=== PATIENT | female | born 1940 | race Caucasian/White ===

== ENCOUNTER 2017-11-24 10:54 | Day surgery (SDC) | payer MEDICARE, BC ==
[2017-11-24] VITALS (19 sets, daily range): BP systolic 117–174; BP diastolic 50–92
[~2017-11-24] VITALS: Ht 167.6 cm; Wt 50.0 kg
[~2017-11-24 10:54] MED LIST: CARV3.12 PO; FURO80TA87 PO; LEVO50TA8 PO; MULT-342 PO; NIFE60TA69 PO; SEVE800T8 PO; SIMV80TA2 PO; [UNRECOGNIZED DRUG - OTHER] PO
[2017-11-24] MEDS ORDERED: normal saline 1000ml 1,000 ML IV SCH (11:10)
[2017-11-24 12:14] LABS: BASOPHILS % (AUTO) 0.4 % (0-1); EOSINOPHILS # (AUTO) 0.1 X10'3 (0-0.9); EOSINOPHILS % (AUTO) 1.4 % (0-6); HEMATOCRIT 30.5 % (35.0-45.0); HEMOGLOBIN 10.5 g/dl (12.0-16.0); LYMPHOCYTES # (AUTO) 1.4 X10'3 (1.1-4.8); LYMPHOCYTES % (AUTO) 13.2 % (21-51); MEAN CORPUSCULAR HEMOGLOBIN 31.9 PG (27.0-31.0); MEAN CORPUSCULAR HGB CONC 34.5 % (33.0-36.5); MEAN CORPUSCULAR VOLUME 92.3 FL (78-98); MEAN PLATELET VOLUME 7.4 FL (7.4-10.4); MONOCYTES # (AUTO) 0.8 X10'3 (0-0.9); MONOCYTES % (AUTO) 7.4 % (2-12); NEUTROPHILS # (AUTO) 8.2 X10'3 (1.8-7.7); NEUTROPHILS % (AUTO) 77.6 % (42-75); PLATELET COUNT 261 X10'3 (140-440); WHITE BLOOD COUNT 10.6 X10'3 (4.5-11.0)
[2017-11-24] MEDS ORDERED: fentaNYL/PF 50MCG/1 ML 2ML syringe IV PRN (12:30)
[2017-11-24] MEDS ORDERED: midazolam 2 mg/2 ml injection IV PRN (12:30)
[2017-11-24] MEDS ORDERED: LIDOcaine 1%/PF (10mg/ml) 5ml vial SQ ONE (12:30)
[2017-11-24] MEDS ORDERED: heparin 1,000unit/ml 10ml vial 0 ML ONE (12:31)
[2017-11-24] MEDS ORDERED: midazolam 2 mg/2 ml injection ONE (12:32)
[2017-11-24] MEDS ORDERED: fentaNYL/PF 50MCG/1 ML 2ML syringe ONE (12:32)
[2017-11-24] MEDS ORDERED: heparin 1,000 UNITS/NS 500ml 500 ML ONE (12:32)
[2017-11-24] MEDS ORDERED: iohexol 300mg/ml 100ml inj. ONE (12:33)
[2017-11-24] MEDS ORDERED: LIDOcaine 1%/PF (10mg/ml) 5ml vial ONE (12:33)
[2017-11-24] MEDS ORDERED: CLOP75TA15 PO (12:38)
[2017-11-24] MEDS ORDERED: MIDO5TAB PO (12:38)
[2017-11-24] MEDS ORDERED: clopidogrel 300mg tablet PO ONE (13:55)
== END 2017-11-24 16:00 | disposition home or self-care (01) ==
LOC: SSTAY O 10:54
PROVIDERS: ATTEND Radiology Diagnostic Radiology
DX: T82.858A Stenosis of other vascular prosthetic devices, implants and grafts, initial encounter (principal); I12.0 Hypertensive chronic kidney disease with stage 5 chronic kidney disease or end stage renal disease; N18.6 End stage renal disease; E78.5 Hyperlipidemia, unspecified; I25.10 Atherosclerotic heart disease of native coronary artery without angina pectoris; G89.29 Other chronic pain; E03.9 Hypothyroidism, unspecified; B19.10 Unspecified viral hepatitis B without hepatic coma; Z95.1 Presence of aortocoronary bypass graft; Z99.2 Dependence on renal dialysis; Z98.890 Other specified postprocedural states; Z79.899 Other long term (current) drug therapy; Z90.89 Acquired absence of other organs; Z98.42 Cataract extraction status, left eye; Z98.41 Cataract extraction status, right eye; Z90.710 Acquired absence of both cervix and uterus; Y83.8 Other surgical procedures as the cause of abnormal reaction of the patient, or of later complication, without mention of misadventure at the time of the procedure; Y92.89 Other specified places as the place of occurrence of the external cause
CPT/HCPCS: 36415; 36901; 36908; 85025; 99152; 99153; C1725; C1769; C1887; C1894; J1644; J2001; J2250; J3010; J7030; Q9967; 36903; A4620

== ENCOUNTER 2018-04-12 11:25 | Inpatient (IN) | payer MEDICARE, BC ==
[~2018-04-12] VITALS: Ht 167.6 cm; Wt 58.4 kg
[~2018-04-12 11:25] MED LIST changes: +CLOP75TA15 PO; +MIDO5TAB PO
[2018-04-12 12:24] LABS: BASOPHILS % (AUTO) 0.5 % (0-1); EOSINOPHILS # (AUTO) 0.6 X10'3 (0-0.9); EOSINOPHILS % (AUTO) 6.6 % (0-6); HEMATOCRIT 33.9 % (35.0-45.0); HEMOGLOBIN 11.4 g/dl (12.0-16.0); LYMPHOCYTES # (AUTO) 1.2 X10'3 (1.1-4.8); LYMPHOCYTES % (AUTO) 12.2 % (21-51); MEAN CORPUSCULAR HEMOGLOBIN 30.1 PG (27.0-31.0); MEAN CORPUSCULAR HGB CONC 33.6 % (33.0-36.5); MEAN CORPUSCULAR VOLUME 89.4 FL (78-98); MEAN PLATELET VOLUME 7.9 FL (7.4-10.4); MONOCYTES # (AUTO) 0.8 X10'3 (0-0.9); MONOCYTES % (AUTO) 8.5 % (2-12); NEUTROPHILS # (AUTO) 6.9 X10'3 (1.8-7.7); NEUTROPHILS % (AUTO) 72.2 % (42-75); PLATELET COUNT 262 X10'3 (140-440); RED BLOOD COUNT 3.79 X10'6 (4.20-5.60); RED CELL DISTRIBUTION WIDTH 17.8 % (11.5-14.5); WHITE BLOOD COUNT 9.6 X10'3 (4.5-11.0)
[2018-04-12 12:34] LABS: PARTIAL THROMBOPLASTIN TIME 27 SECONDS (22-32); PROTHROMBIN TIME 10.7 SECONDS (9.0-12.0)
[2018-04-12 12:40] LABS: ALANINE AMINOTRANSFERASE 16 U/L (12-78); ALBUMIN 3.3 G/DL (3.4-5.0); ALBUMIN/GLOBULIN RATIO 0.8 (1.1-1.5); ALKALINE PHOSPHATASE 94 IU/L (46-116); ANION GAP 18 (8-16); ASPARTATE AMINO TRANSFERASE 15 U/L (10-37); BILIRUBIN,TOTAL 0.5 MG/DL (0.1-1.0); BLOOD UREA NITROGEN 141 MG/DL (7-18); BUN/CREATININE RATIO 17.9 (6.6-38.0); CALCIUM 8.9 MG/DL (8.5-10.1); CHLORIDE 97 MMOL/L (99-107); CREATININE 7.86 MG/DL (0.40-0.90); GLUCOSE 118 MG/DL (70-104); POTASSIUM 5.8 MMOL/L (3.5-5.1); SODIUM 140 MMOL/L (135-145); TOTAL CARBON DIOXIDE 24.7 MMOL/L (24-32); TOTAL PROTEIN 7.4 G/DL (6.4-8.2); eGFR 5 ML/MIN
[2018-04-12] MEDS ORDERED: dextrose 50%-water 50ml dispensing syringe IV ONE (12:55)
[2018-04-12] MEDS ORDERED: sodium polystyrene sulfonate 15gm/60ml oral suspension PO ONE (12:55)
[2018-04-12] MEDS ORDERED: calcium chloride 100 MG/1 ML inj IV ONE (12:55)
[2018-04-12] MEDS ORDERED: insulin regular, human 10 units/0.1 ml syringe IV ONE (12:55)
[2018-04-12] MEDS ORDERED: diphenhydrAMINE 25mg capsule PO PRN (15:20)
[2018-04-12] MEDS ORDERED: acetaminophen 650mg rectal suppository RC PRN (15:20)
[2018-04-12] MEDS ORDERED: furosemide 10 MG/1 ML 10ml inj IV ONE (15:20)
[2018-04-12] MEDS ORDERED: ipratropium/albuterol 3ml nebule NEB PRN (15:20)
[2018-04-12] MEDS ORDERED: ondansetron/PF 4mg/2ml inj IV PRN (15:20)
[2018-04-12] MEDS ORDERED: bisacodyl 10mg suppository rectal RC PRN (15:20)
[2018-04-12] MEDS ORDERED: acetaminophen 325mg tablet PO PRN ×2 (15:20)
[2018-04-12] MEDS ORDERED: prednisone 10mg tablet PO ONE (15:20)
[2018-04-12] MEDS: sevelamer carbonate 800mg tablet PO SCH (18:00)
[2018-04-12 19:00] VITALS: BP 172/52
[2018-04-12] MEDS: docusate sod 100mg capsule PO SCH (20:00)
[2018-04-12] MEDS: atorvastatin 20mg tablet PO SCH (20:29)
[2018-04-12] MEDS: carVEDilol 3.125mg tablet PO SCH (20:37)
[2018-04-12] MEDS: NIFEdipine XL 30mg tablet PO SCH (20:39)
[2018-04-12] MEDS: multivitamins, therapeutics tablet PO SCH (20:40)
[2018-04-12] MEDS ORDERED: FUROSEMIDE PO SCH (21:00)
[2018-04-12] MEDS ORDERED: [UNRECOGNIZED DRUG - OTHER] PO SCH (21:00)
[2018-04-12 23:00] VITALS: BP 152/52
[2018-04-13] VITALS (22 sets, daily range): BP systolic 111–182; BP diastolic 51–98
[2018-04-13] MEDS ORDERED: heparin 1,000unit/ml 10ml vial 10 ML IV ONE (07:13)
[2018-04-13] MEDS ORDERED: heparin 1,000 units/ml 10ml inj IV ONE (07:15)
[2018-04-13] MEDS ORDERED: albumin (human) 25% 100ml IV 100 ML IV PRN (07:15)
[2018-04-13] MEDS: levoTHYROXINE 25mcg tablet PO SCH (07:29)
[2018-04-13] MEDS: carVEDilol 3.125mg tablet PO SCH ×2 (07:29→22:05)
[2018-04-13] MEDS: docusate sod 100mg capsule PO SCH ×2 (07:29→20:00)
[2018-04-13] MEDS: clopidogrel 75mg tablet PO SCH (07:30)
[2018-04-13] MEDS: sevelamer carbonate 800mg tablet PO SCH ×3 (07:30→17:02)
[2018-04-13] MEDS ORDERED: midodrine 5mg tablet PO PRN (08:00)
[2018-04-13 08:27] LABS: HEMATOCRIT 33.2 % (35.0-45.0); HEMOGLOBIN 10.9 g/dl (12.0-16.0); MEAN CORPUSCULAR HEMOGLOBIN 29.8 PG (27.0-31.0); MEAN CORPUSCULAR HGB CONC 32.8 % (33.0-36.5); MEAN CORPUSCULAR VOLUME 90.9 FL (78-98); PLATELET COUNT 232 X10'3 (140-440); RED BLOOD COUNT 3.65 X10'6 (4.20-5.60); RED CELL DISTRIBUTION WIDTH 17.9 % (11.5-14.5); WHITE BLOOD COUNT 10.5 X10'3 (4.5-11.0)
[2018-04-13] MEDS ORDERED: epoetin 20,000 units/ml inj IV ONE (09:00)
[2018-04-13] MEDS ORDERED: normal saline 1000ml 1,000 ML IV SCH (12:22)
[2018-04-13] MEDS ORDERED: heparin 1,000 units/ml 10ml inj ICATH ONE (12:25)
[2018-04-13] MEDS ORDERED: LIDOcaine 1%/PF 5ML 10 MG/ML VIAL SQ ONE (12:25)
[2018-04-13] MEDS ORDERED: midazolam 2 mg/2 ml injection IV PRN (12:25)
[2018-04-13] MEDS ORDERED: fentaNYL/PF 50MCG/1 ML 2ML syringe IV PRN (12:25)
[2018-04-13] MEDS ORDERED: iohexol 300mg/ml 100ml inj. ONE (13:40)
[2018-04-13] MEDS ORDERED: LIDOcaine 1%/PF 5ML 10 MG/ML VIAL ONE (13:40)
[2018-04-13] MEDS ORDERED: fentaNYL/PF 50MCG/1 ML 2ML syringe ONE ×2 (14:06→15:06)
[2018-04-13] MEDS ORDERED: midazolam 2 mg/2 ml injection ONE (14:06)
[2018-04-13] MEDS ORDERED: heparin 1,000 UNITS/NS 500ml 500 ML ONE (14:07)
[2018-04-13] MEDS ORDERED: alteplase 1 mg/ml 5ml syringe ICATH ONE (14:30)
[2018-04-13] MEDS ORDERED: heparin 1,000unit/ml 10ml vial 10 ML ONE (15:05)
[2018-04-13] MEDS ORDERED: heparin 1,000 units/ml 10ml inj HE ONE ×2 (17:40)
[2018-04-13] MEDS ORDERED: furosemide 40mg tablet PO SCH (21:00)
[2018-04-13] MEDS: NIFEdipine XL 30mg tablet PO SCH (22:04)
[2018-04-13] MEDS: multivitamins, therapeutics tablet PO SCH (22:04)
[2018-04-13] MEDS: atorvastatin 20mg tablet PO SCH (22:05)
[2018-04-14 03:00] VITALS: BP 121/55
[2018-04-14 06:00] VITALS: BP 144/48
[2018-04-14] MEDS: docusate sod 100mg capsule PO SCH (08:00)
[2018-04-14] MEDS: carVEDilol 3.125mg tablet PO SCH (08:20)
[2018-04-14] MEDS: sevelamer carbonate 800mg tablet PO SCH ×2 (08:20→12:27)
[2018-04-14] MEDS: levoTHYROXINE 25mcg tablet PO SCH (08:21)
[2018-04-14] MEDS: clopidogrel 75mg tablet PO SCH (08:21)
[2018-04-14 11:00] VITALS: BP 146/46
[2018-04-14 15:52] VITALS: BP 156/63
== END 2018-04-14 17:58 | disposition home or self-care (01) | DRG 252 ==
LOC: ER 11:25 → ED HOLD 15:16 → EDBEDREQ 16:53 → PCU 3S 17:50
PROVIDERS: ADMIT Internal Medicine Critical Care Medicine; ATTEND Internal Medicine Critical Care Medicine
PROC: 05C83ZZ Extirpation of Matter from Left Axillary Vein, Percutaneous Approach (ICD-10-PCS; principal; 2018-04-13)
PROC: 03783ZZ Dilation of Left Brachial Artery, Percutaneous Approach (ICD-10-PCS; 2018-04-13)
PROC: 05783ZZ Dilation of Left Axillary Vein, Percutaneous Approach (ICD-10-PCS; 2018-04-13)
PROC: 02H633Z Insertion of Infusion Device into Right Atrium, Percutaneous Approach (ICD-10-PCS; 2018-04-13)
PROC: B244ZZZ Ultrasonography of Right Heart (ICD-10-PCS; 2018-04-13)
PROC: 3E03317 Introduction of Other Thrombolytic into Peripheral Vein, Percutaneous Approach (ICD-10-PCS; 2018-04-13)
PROC: B51W1ZZ Fluoroscopy of Dialysis Shunt/Fistula using Low Osmolar Contrast (ICD-10-PCS; 2018-04-13)
PROC: 5A1D70Z Performance of Urinary Filtration, Intermittent, Less than 6 Hours Per Day (ICD-10-PCS; 2018-04-13)
PROC: 3E05317 Introduction of Other Thrombolytic into Peripheral Artery, Percutaneous Approach (ICD-10-PCS; 2018-04-13)
PROC: 0JH63XZ Insertion of Tunneled Vascular Access Device into Chest Subcutaneous Tissue and Fascia, Percutaneous Approach (ICD-10-PCS; 2018-04-13)
DX: T82.868A Thrombosis due to vascular prosthetic devices, implants and grafts, initial encounter (principal); N18.6 End stage renal disease; I12.0 Hypertensive chronic kidney disease with stage 5 chronic kidney disease or end stage renal disease; E87.5 Hyperkalemia; I25.10 Atherosclerotic heart disease of native coronary artery without angina pectoris; F32.9 Major depressive disorder, single episode, unspecified; Z60.2 Problems related to living alone; G89.29 Other chronic pain; E03.9 Hypothyroidism, unspecified; Y83.2 Surgical operation with anastomosis, bypass or graft as the cause of abnormal reaction of the patient, or of later complication, without mention of misadventure at the time of the procedure; M54.9 Dorsalgia, unspecified; Z91.15 Patient's noncompliance with renal dialysis; Z95.1 Presence of aortocoronary bypass graft; Z90.49 Acquired absence of other specified parts of digestive tract; Z90.710 Acquired absence of both cervix and uterus; Z99.2 Dependence on renal dialysis; Z79.02 Long term (current) use of antithrombotics/antiplatelets; Z79.899 Other long term (current) drug therapy; Z82.49 Family history of ischemic heart disease and other diseases of the circulatory system; Y92.89 Other specified places as the place of occurrence of the external cause
CPT/HCPCS: 36415; 36558; 36905; 71045; 76937; 77001; 80053; 82948; 83880; 84132; 84443; 84484; 85025; 85027; 85610; 85730; 93005; 94760; 96374; 96375; 99152; 99153; 99285; A4620; A9270; C1725; C1750; C1757; C1769; C1894; G0257; J0885; J1644; J1815; J1940; J2001; J2250; J3010; J7030; J7512; Q9967

== ENCOUNTER 2018-06-05 11:29 | Inpatient (IN) | payer MEDICARE, BC ==
[~2018-06-05] VITALS: Ht 167.6 cm; Wt 58.1 kg
[2018-06-05] VITALS (11 sets, daily range): BP systolic 117–199; BP diastolic 51–91
[2018-06-05] MEDS ORDERED: LIDOcaine 1%/PF 5ML 10 MG/ML VIAL SQ ONE (13:30)
[2018-06-05] MEDS ORDERED: fentaNYL/PF 50MCG/1 ML 2ML syringe IV PRN (13:30)
[2018-06-05] MEDS ORDERED: heparin 1,000 units/ml 10ml inj ICATH ONE (13:30)
[2018-06-05] MEDS ORDERED: midazolam 2 mg/2 ml injection IV PRN (13:30)
[2018-06-05] MEDS ORDERED: heparin 1,000unit/ml 10ml vial 10 ML ONE (13:38)
[2018-06-05] MEDS ORDERED: LIDOcaine 1%/PF 5ML 10 MG/ML VIAL ONE (13:38)
[2018-06-05] MEDS ORDERED: midazolam 2 mg/2 ml injection ONE (13:52)
[2018-06-05] MEDS ORDERED: fentaNYL/PF 50MCG/1 ML 2ML syringe ONE (13:52)
[2018-06-05] MEDS: normal saline 1000ml 1,000 ML IV SCH ×2 (13:57→17:59)
[2018-06-05 14:10] LABS: BASOPHILS # (AUTO) 0.1 X10'3 (0-0.2); BASOPHILS % (AUTO) 0.4 % (0-1); EOSINOPHILS # (AUTO) 0.5 X10'3 (0-0.9); EOSINOPHILS % (AUTO) 3.3 % (0-6); HEMATOCRIT 28.3 % (35.0-45.0); HEMOGLOBIN 9.4 g/dl (12.0-16.0); LYMPHOCYTES # (AUTO) 1.2 X10'3 (1.1-4.8); LYMPHOCYTES % (AUTO) 8.7 % (21-51); MEAN CORPUSCULAR HEMOGLOBIN 30.9 PG (27.0-31.0); MEAN CORPUSCULAR HGB CONC 33.3 % (33.0-36.5); MEAN CORPUSCULAR VOLUME 92.7 FL (78-98); MEAN PLATELET VOLUME 8.6 FL (7.4-10.4); MONOCYTES # (AUTO) 1.1 X10'3 (0-0.9); MONOCYTES % (AUTO) 7.7 % (2-12); NEUTROPHILS # (AUTO) 11.4 X10'3 (1.8-7.7); NEUTROPHILS % (AUTO) 79.9 % (42-75); PLATELET COUNT 276 X10'3 (140-440); RED BLOOD COUNT 3.05 X10'6 (4.20-5.60); RED CELL DISTRIBUTION WIDTH 17.6 % (11.5-14.5); WHITE BLOOD COUNT 14.3 X10'3 (4.5-11.0)
[2018-06-05 14:20] LABS: PARTIAL THROMBOPLASTIN TIME 27 SECONDS (22-32); PROTHROMBIN TIME 10.2 SECONDS (9.0-12.0)
[2018-06-05 14:27] LABS: ALANINE AMINOTRANSFERASE 9 U/L (12-78); ALBUMIN 3.5 G/DL (3.4-5.0); ALKALINE PHOSPHATASE 112 IU/L (46-116); ANION GAP 14 (8-16); ASPARTATE AMINO TRANSFERASE 15 U/L (10-37); BILIRUBIN,TOTAL 0.4 MG/DL (0.1-1.0); BLOOD UREA NITROGEN 84 MG/DL (7-18); CALCIUM 8.6 MG/DL (8.5-10.1); CHLORIDE 97 MMOL/L (99-107); CREATININE 5.98 MG/DL (0.40-0.90); GLUCOSE 91 MG/DL (70-104); POTASSIUM 4.5 MMOL/L (3.5-5.1); SODIUM 137 MMOL/L (135-145); TOTAL CARBON DIOXIDE 26.2 MMOL/L (24-32); TOTAL PROTEIN 7.1 G/DL (6.4-8.2); eGFR 7 ML/MIN
[2018-06-05] MEDS ORDERED: iohexol 300 MG/1 ML 50ml polymer ONE (14:51)
[2018-06-05] MEDS ORDERED: HYDROcodone/acetaminophen 10/325mg tab PO PRN (16:50)
[2018-06-05] MEDS ORDERED: HYDROmorphone inj. 0.5 MG/0.5 ML DISP.SYRIN IV PRN (16:50)
[2018-06-05] MEDS ORDERED: HYDROcodone/acetaminophen 5mg/325mg tablet PO PRN (16:50)
[2018-06-05] MEDS ORDERED: ondansetron/PF 4mg/2ml inj IV PRN (16:50)
[2018-06-05] MEDS ORDERED: acetaminophen 325mg tablet PO PRN (16:50)
[2018-06-05] MEDS ORDERED: bisacodyl 10mg suppository rectal RC PRN (16:50)
[2018-06-05] MEDS ORDERED: diphenhydrAMINE 25mg capsule PO PRN (16:50)
[2018-06-05] MEDS ORDERED: vancomycin/NS 1 GM ADD-VANTAGE 250 ML IV ONE (16:55)
[2018-06-05] MEDS: lactose-reduced food (Ensure Enlive) - 237ml bottle PO SCH (18:00)
[2018-06-05 18:49] LABS: BASOPHILS % (AUTO) 0.4 % (0-1); EOSINOPHILS # (AUTO) 0.4 X10'3 (0-0.9); EOSINOPHILS % (AUTO) 3.4 % (0-6); HEMATOCRIT 25.2 % (35.0-45.0); HEMOGLOBIN 8.4 g/dl (12.0-16.0); LYMPHOCYTES # (AUTO) 1.2 X10'3 (1.1-4.8); LYMPHOCYTES % (AUTO) 11.7 % (21-51); MEAN CORPUSCULAR HEMOGLOBIN 30.7 PG (27.0-31.0); MEAN CORPUSCULAR HGB CONC 33.3 % (33.0-36.5); MEAN CORPUSCULAR VOLUME 92.1 FL (78-98); MEAN PLATELET VOLUME 8.4 FL (7.4-10.4); MONOCYTES # (AUTO) 0.9 X10'3 (0-0.9); MONOCYTES % (AUTO) 8.7 % (2-12); NEUTROPHILS # (AUTO) 8.1 X10'3 (1.8-7.7); NEUTROPHILS % (AUTO) 75.8 % (42-75); PLATELET COUNT 246 X10'3 (140-440); RED BLOOD COUNT 2.74 X10'6 (4.20-5.60); RED CELL DISTRIBUTION WIDTH 17.9 % (11.5-14.5); WHITE BLOOD COUNT 10.6 X10'3 (4.5-11.0)
[2018-06-05] MEDS ORDERED: cefTAZidime inj. 1 GM in normal saline 100ml IV soln 100 ML IV ONE (20:00)
[2018-06-05] MEDS ORDERED: temazepam 15mg capsule PO PRN (21:00)
[2018-06-05] MEDS: docusate sod 100mg capsule PO SCH (22:07)
[2018-06-05] MEDS: CEFTAZIDIME IV SCH (22:08)
[2018-06-05] MEDS: NORMAL SALINE IV SCH (22:08)
[2018-06-05] MEDS: heparin, porcine 5000 units/ml vial SQ SCH (22:10)
[2018-06-06 02:00] VITALS: BP 134/46
[2018-06-06 05:20] LABS: BASOPHILS % (AUTO) 0.3 % (0-1); EOSINOPHILS # (AUTO) 0.2 X10'3 (0-0.9); HEMATOCRIT 25.2 % (35.0-45.0); HEMOGLOBIN 8.7 g/dl (12.0-16.0); LYMPHOCYTES # (AUTO) 0.8 X10'3 (1.1-4.8); LYMPHOCYTES % (AUTO) 8.6 % (21-51); MEAN CORPUSCULAR HEMOGLOBIN 31.5 PG (27.0-31.0); MEAN CORPUSCULAR HGB CONC 34.3 % (33.0-36.5); MEAN CORPUSCULAR VOLUME 91.6 FL (78-98); MEAN PLATELET VOLUME 8.8 FL (7.4-10.4); MONOCYTES # (AUTO) 0.8 X10'3 (0-0.9); MONOCYTES % (AUTO) 8.1 % (2-12); PLATELET COUNT 248 X10'3 (140-440); RED BLOOD COUNT 2.75 X10'6 (4.20-5.60); RED CELL DISTRIBUTION WIDTH 18.1 % (11.5-14.5); WHITE BLOOD COUNT 9.9 X10'3 (4.5-11.0)
[2018-06-06 05:46] LABS: ALBUMIN 2.7 G/DL (3.4-5.0); ANION GAP 10 (8-16); BLOOD UREA NITROGEN 98 MG/DL (7-18); BUN/CREATININE RATIO 15.5 (6.6-38.0); CHLORIDE 100 MMOL/L (99-107); CREATININE 6.33 MG/DL (0.40-0.90); GLUCOSE 93 MG/DL (70-104); MAGNESIUM 2.7 MG/DL (1.5-2.4); PHOSPHORUS 4.8 MG/DL (2.3-4.5); POTASSIUM 4.6 MMOL/L (3.5-5.1); SODIUM 138 MMOL/L (135-145); TOTAL CARBON DIOXIDE 27.6 MMOL/L (24-32); eGFR 6 ML/MIN
[2018-06-06 06:00] VITALS: BP 155/44
[2018-06-06] MEDS ORDERED: epoetin 20,000 units/ml inj IV ONE (08:00)
[2018-06-06] MEDS: docusate sod 100mg capsule PO SCH ×2 (08:00→20:48)
[2018-06-06] MEDS: lactose-reduced food (Ensure Enlive) - 237ml bottle PO SCH ×3 (08:00→17:38)
[2018-06-06] MEDS: heparin, porcine 5000 units/ml vial SQ SCH ×2 (08:00→20:52)
[2018-06-06] MEDS ORDERED: heparin 1,000 units/ml 10ml inj IV ONE (08:00)
[2018-06-06] MEDS ORDERED: albumin (human) 25% 100ml IV 100 ML IV PRN (08:00)
[2018-06-06] MEDS ORDERED: heparin 1,000unit/ml 10ml vial 10 ML IV ONE (08:00)
[2018-06-06] MEDS ORDERED: heparin 1,000 units/ml 10ml inj HE ONE ×2 (08:00)
[2018-06-06] MEDS ORDERED: LIDOcaine 1%/PF 5ML 10 MG/ML VIAL SQ ONE (10:05)
[2018-06-06] MEDS ORDERED: heparin 1,000 units/ml 10ml inj ICATH ONE (10:05)
[2018-06-06] MEDS ORDERED: fentaNYL/PF 50MCG/1 ML 2ML syringe IV PRN (10:05)
[2018-06-06] MEDS ORDERED: midazolam 2 mg/2 ml injection IV PRN (10:05)
[2018-06-06] MEDS ORDERED: LIDOcaine 1%/PF 5ML 10 MG/ML VIAL ONE (10:09)
[2018-06-06] MEDS ORDERED: heparin 1,000unit/ml 10ml vial 10 ML ONE (10:40)
[2018-06-06] MEDS ORDERED: fentaNYL/PF 50MCG/1 ML 2ML syringe ONE (10:40)
[2018-06-06] MEDS ORDERED: midazolam 2 mg/2 ml injection ONE (10:40)
[2018-06-06] MEDS ORDERED: iohexol 300 MG/1 ML 50ml polymer ONE (11:12)
[2018-06-06 11:16] LABS: CREATINE KINASE 41 U/L (26-192)
[2018-06-06 15:00] VITALS: BP 124/56
[2018-06-06] MEDS: sevelamer carbonate 800mg tablet PO SCH (17:39)
[2018-06-06 18:00] VITALS: BP 142/55
[2018-06-06] MEDS: protein smoothie 8oz. (237ml) PO SCH (18:00)
[2018-06-06] MEDS: furosemide 40mg tablet PO SCH (20:48)
[2018-06-06] MEDS: carVEDilol 3.125mg tablet PO SCH (20:48)
[2018-06-06] MEDS: NIFEdipine XL 30mg tablet PO SCH (20:49)
[2018-06-06] MEDS: atorvastatin 20mg tablet PO SCH (20:49)
[2018-06-06] MEDS: multivitamins, therapeutics tablet PO SCH (20:52)
[2018-06-06] MEDS: [UNRECOGNIZED DRUG - OTHER] PO SCH (21:00)
[2018-06-06 22:00] VITALS: BP 110/46
[2018-06-06 22:27] LABS: CREATINE KINASE 37 U/L (26-192)
[2018-06-07 04:07] VITALS: BP 136/45
[2018-06-07 05:12] LABS: BASOPHILS # (AUTO) 0.1 X10'3 (0-0.2); BASOPHILS % (AUTO) 0.5 % (0-1); EOSINOPHILS # (AUTO) 0.3 X10'3 (0-0.9); EOSINOPHILS % (AUTO) 3.2 % (0-6); HEMOGLOBIN 8.8 g/dl (12.0-16.0); LYMPHOCYTES # (AUTO) 1.2 X10'3 (1.1-4.8); LYMPHOCYTES % (AUTO) 12.3 % (21-51); MEAN CORPUSCULAR HEMOGLOBIN 31.3 PG (27.0-31.0); MEAN CORPUSCULAR HGB CONC 33.8 % (33.0-36.5); MEAN CORPUSCULAR VOLUME 92.5 FL (78-98); MEAN PLATELET VOLUME 8.8 FL (7.4-10.4); MONOCYTES # (AUTO) 1.1 X10'3 (0-0.9); MONOCYTES % (AUTO) 11.3 % (2-12); NEUTROPHILS # (AUTO) 7.1 X10'3 (1.8-7.7); NEUTROPHILS % (AUTO) 72.7 % (42-75); PLATELET COUNT 246 X10'3 (140-440); RED BLOOD COUNT 2.81 X10'6 (4.20-5.60); RED CELL DISTRIBUTION WIDTH 17.4 % (11.5-14.5); WHITE BLOOD COUNT 9.8 X10'3 (4.5-11.0)
[2018-06-07 05:40] LABS: ALBUMIN 2.6 G/DL (3.4-5.0); ANION GAP 8 (8-16); BLOOD UREA NITROGEN 43 MG/DL (7-18); BUN/CREATININE RATIO 11.6 (6.6-38.0); CALCIUM 8.2 MG/DL (8.5-10.1); CHLORIDE 99 MMOL/L (99-107); CREATININE 3.72 MG/DL (0.40-0.90); GLUCOSE 81 MG/DL (70-104); MAGNESIUM 2.3 MG/DL (1.5-2.4); PHOSPHORUS 4.4 MG/DL (2.3-4.5); POTASSIUM 4.4 MMOL/L (3.5-5.1); SODIUM 136 MMOL/L (135-145); TOTAL CARBON DIOXIDE 29.2 MMOL/L (24-32); eGFR 12 ML/MIN
[2018-06-07 06:00] VITALS: BP 148/74
[2018-06-07] MEDS: protein smoothie 8oz. (237ml) PO SCH ×3 (08:00→18:00)
[2018-06-07] MEDS: sevelamer carbonate 800mg tablet PO SCH ×3 (08:00→18:00)
[2018-06-07] MEDS: lactose-reduced food (Ensure Enlive) - 237ml bottle PO SCH ×3 (08:00→18:00)
[2018-06-07] MEDS: heparin, porcine 5000 units/ml vial SQ SCH ×2 (08:00→20:00)
[2018-06-07] MEDS: carVEDilol 3.125mg tablet PO SCH ×2 (09:39→20:00)
[2018-06-07] MEDS: clopidogrel 75mg tablet PO SCH (09:39)
[2018-06-07] MEDS: levoTHYROXINE 25mcg tablet PO SCH (09:40)
[2018-06-07] MEDS: docusate sod 100mg capsule PO SCH ×2 (09:40→21:52)
[2018-06-07] MEDS: NORMAL SALINE IV SCH (12:01)
[2018-06-07] MEDS: CEFTAZIDIME IV SCH (12:01)
[2018-06-07 18:00] VITALS: BP 120/38
[2018-06-07] MEDS ORDERED: lactose-reduced food (Ensure Enlive) - 237ml bottle PO SCH (18:00)
[2018-06-07] MEDS: [UNRECOGNIZED DRUG - OTHER] PO SCH (21:00)
[2018-06-07] MEDS: NIFEdipine XL 30mg tablet PO SCH (21:00)
[2018-06-07] MEDS: furosemide 40mg tablet PO SCH (21:53)
[2018-06-07] MEDS: atorvastatin 20mg tablet PO SCH (21:54)
[2018-06-07] MEDS: multivitamins, therapeutics tablet PO SCH (21:54)
[2018-06-07 22:00] VITALS: BP 137/46
[2018-06-08 06:10] LABS: BASOPHILS % (AUTO) 0.4 % (0-1); EOSINOPHILS # (AUTO) 0.6 X10'3 (0-0.9); EOSINOPHILS % (AUTO) 5.4 % (0-6); HEMATOCRIT 24.3 % (35.0-45.0); HEMOGLOBIN 8.1 g/dl (12.0-16.0); LYMPHOCYTES % (AUTO) 9.9 % (21-51); MEAN CORPUSCULAR HEMOGLOBIN 30.8 PG (27.0-31.0); MEAN CORPUSCULAR HGB CONC 33.4 % (33.0-36.5); MEAN CORPUSCULAR VOLUME 92.2 FL (78-98); MEAN PLATELET VOLUME 8.6 FL (7.4-10.4); MONOCYTES # (AUTO) 1.4 X10'3 (0-0.9); MONOCYTES % (AUTO) 12.9 % (2-12); NEUTROPHILS # (AUTO) 7.5 X10'3 (1.8-7.7); NEUTROPHILS % (AUTO) 71.4 % (42-75); PLATELET COUNT 230 X10'3 (140-440); RED BLOOD COUNT 2.63 X10'6 (4.20-5.60); RED CELL DISTRIBUTION WIDTH 17.9 % (11.5-14.5); WHITE BLOOD COUNT 10.5 X10'3 (4.5-11.0)
[2018-06-08 06:26] LABS: ALBUMIN 2.6 G/DL (3.4-5.0); ANION GAP 9 (8-16); BLOOD UREA NITROGEN 86 MG/DL (7-18); BUN/CREATININE RATIO 15.7 (6.6-38.0); CALCIUM 8.3 MG/DL (8.5-10.1); CHLORIDE 99 MMOL/L (99-107); CREATININE 5.47 MG/DL (0.40-0.90); GLUCOSE 101 MG/DL (70-104); MAGNESIUM 2.4 MG/DL (1.5-2.4); POTASSIUM 5.2 MMOL/L (3.5-5.1); SODIUM 137 MMOL/L (135-145); TOTAL CARBON DIOXIDE 29.3 MMOL/L (24-32); eGFR 8 ML/MIN
[2018-06-08] MEDS ORDERED: heparin 1,000unit/ml 10ml vial 10 ML IV ONE (06:38)
[2018-06-08] MEDS ORDERED: albumin (human) 25% 100ml IV 100 ML IV PRN (06:40)
[2018-06-08] MEDS ORDERED: heparin 1,000 units/ml 10ml inj IV ONE (06:40)
[2018-06-08] MEDS ORDERED: epoetin 20,000 units/ml inj IV ONE (06:40)
[2018-06-08] MEDS ORDERED: heparin 1,000 units/ml 10ml inj HE ONE ×4 (06:45→08:25)
[2018-06-08] MEDS: carVEDilol 3.125mg tablet PO SCH ×2 (08:00→20:00)
[2018-06-08] MEDS: lactose-reduced food (Ensure Enlive) - 237ml bottle PO SCH ×3 (08:00→18:00)
[2018-06-08] MEDS: heparin, porcine 5000 units/ml vial SQ SCH ×2 (08:00→19:49)
[2018-06-08] MEDS: sevelamer carbonate 800mg tablet PO SCH ×3 (08:00→20:23)
[2018-06-08] MEDS: docusate sod 100mg capsule PO SCH ×2 (08:09→20:24)
[2018-06-08] MEDS: levoTHYROXINE 25mcg tablet PO SCH (08:09)
[2018-06-08] MEDS: clopidogrel 75mg tablet PO SCH (08:09)
[2018-06-08] MEDS: CEFTAZIDIME IV SCH (08:10)
[2018-06-08] MEDS: NORMAL SALINE IV SCH (08:10)
[2018-06-08 08:39] VITALS: BP 150/51
[2018-06-08] MEDS: midodrine 5mg tablet PO SCH (09:04)
[2018-06-08 12:01] VITALS: BP 143/56
[2018-06-08 18:00] VITALS: BP 162/49
[2018-06-08] MEDS: multivitamins, therapeutics tablet PO SCH (20:24)
[2018-06-08] MEDS: furosemide 40mg tablet PO SCH (20:24)
[2018-06-08] MEDS: atorvastatin 20mg tablet PO SCH (20:25)
[2018-06-08] MEDS: [UNRECOGNIZED DRUG - OTHER] PO SCH (20:25)
[2018-06-08] MEDS: NIFEdipine XL 30mg tablet PO SCH (20:32)
[2018-06-08 20:33] VITALS: BP 108/33
[2018-06-08 22:00] VITALS: BP 144/42
[2018-06-09 05:00] VITALS: BP 152/37
[2018-06-09 06:01] LABS: BASOPHILS # (AUTO) 0.1 X10'3 (0-0.2); BASOPHILS % (AUTO) 0.5 % (0-1); EOSINOPHILS # (AUTO) 0.7 X10'3 (0-0.9); EOSINOPHILS % (AUTO) 6.2 % (0-6); HEMATOCRIT 25.9 % (35.0-45.0); HEMOGLOBIN 8.5 g/dl (12.0-16.0); LYMPHOCYTES # (AUTO) 1.1 X10'3 (1.1-4.8); LYMPHOCYTES % (AUTO) 9.9 % (21-51); MEAN CORPUSCULAR HEMOGLOBIN 30.1 PG (27.0-31.0); MEAN CORPUSCULAR HGB CONC 32.7 % (33.0-36.5); MEAN CORPUSCULAR VOLUME 92.3 FL (78-98); MEAN PLATELET VOLUME 8.6 FL (7.4-10.4); MONOCYTES # (AUTO) 1.2 X10'3 (0-0.9); NEUTROPHILS # (AUTO) 7.7 X10'3 (1.8-7.7); NEUTROPHILS % (AUTO) 72.4 % (42-75); PLATELET COUNT 251 X10'3 (140-440); RED BLOOD COUNT 2.81 X10'6 (4.20-5.60); RED CELL DISTRIBUTION WIDTH 18.3 % (11.5-14.5); WHITE BLOOD COUNT 10.6 X10'3 (4.5-11.0)
[2018-06-09 06:25] LABS: ALBUMIN 2.6 G/DL (3.4-5.0); ANION GAP 9 (8-16); BLOOD UREA NITROGEN 47 MG/DL (7-18); BUN/CREATININE RATIO 13.4 (6.6-38.0); CALCIUM 8.6 MG/DL (8.5-10.1); CHLORIDE 99 MMOL/L (99-107); CREATININE 3.51 MG/DL (0.40-0.90); GLUCOSE 99 MG/DL (70-104); PHOSPHORUS 3.5 MG/DL (2.3-4.5); POTASSIUM 5.1 MMOL/L (3.5-5.1); SODIUM 137 MMOL/L (135-145); TOTAL CARBON DIOXIDE 28.9 MMOL/L (24-32); eGFR 13 ML/MIN
[2018-06-09] MEDS: heparin, porcine 5000 units/ml vial SQ SCH ×2 (06:51→20:00)
[2018-06-09 06:58] LABS: ANISOCYTOSIS 2+; PLATELET ESTIMATE NORMAL; POLYCHROMASIA 1+
[2018-06-09 07:30] VITALS: BP 131/30
[2018-06-09] MEDS: carVEDilol 3.125mg tablet PO SCH ×2 (07:32→19:58)
[2018-06-09] MEDS: clopidogrel 75mg tablet PO SCH (07:32)
[2018-06-09] MEDS: sevelamer carbonate 800mg tablet PO SCH ×3 (07:32→18:00)
[2018-06-09] MEDS: docusate sod 100mg capsule PO SCH ×2 (07:32→19:57)
[2018-06-09] MEDS: levoTHYROXINE 25mcg tablet PO SCH (07:32)
[2018-06-09] MEDS: lactose-reduced food (Ensure Enlive) - 237ml bottle PO SCH ×3 (08:00→18:58)
[2018-06-09] MEDS: NORMAL SALINE IV SCH (09:07)
[2018-06-09] MEDS: CEFTAZIDIME IV SCH (09:07)
[2018-06-09 10:00] VITALS: BP 119/29
[2018-06-09 18:00] VITALS: BP 157/66
[2018-06-09] MEDS: furosemide 40mg tablet PO SCH (19:58)
[2018-06-09] MEDS: lactobacillus rhamnosus 10,000 MMU CELLS/CAPSULE PO SCH (19:58)
[2018-06-09] MEDS: atorvastatin 20mg tablet PO SCH (19:59)
[2018-06-09] MEDS: NIFEdipine XL 30mg tablet PO SCH (19:59)
[2018-06-09] MEDS: multivitamins, therapeutics tablet PO SCH (19:59)
[2018-06-09] MEDS: [UNRECOGNIZED DRUG - OTHER] PO SCH (20:01)
[2018-06-09 22:00] VITALS: BP 136/57
[2018-06-10 05:00] VITALS: BP 128/38
[2018-06-10 05:41] LABS: BASOPHILS # (AUTO) 0.1 X10'3 (0-0.2); BASOPHILS % (AUTO) 0.6 % (0-1); EOSINOPHILS # (AUTO) 0.6 X10'3 (0-0.9); EOSINOPHILS % (AUTO) 5.9 % (0-6); HEMOGLOBIN 8.3 g/dl (12.0-16.0); LYMPHOCYTES # (AUTO) 1.2 X10'3 (1.1-4.8); MEAN CORPUSCULAR HEMOGLOBIN 30.5 PG (27.0-31.0); MEAN CORPUSCULAR HGB CONC 33.1 % (33.0-36.5); MEAN CORPUSCULAR VOLUME 92.4 FL (78-98); MEAN PLATELET VOLUME 8.5 FL (7.4-10.4); MONOCYTES # (AUTO) 1.2 X10'3 (0-0.9); MONOCYTES % (AUTO) 11.4 % (2-12); NEUTROPHILS # (AUTO) 7.5 X10'3 (1.8-7.7); NEUTROPHILS % (AUTO) 71.1 % (42-75); PLATELET COUNT 267 X10'3 (140-440); WHITE BLOOD COUNT 10.6 X10'3 (4.5-11.0)
[2018-06-10 06:04] LABS: ALBUMIN 2.5 G/DL (3.4-5.0); ANION GAP 10 (8-16); BLOOD UREA NITROGEN 74 MG/DL (7-18); BUN/CREATININE RATIO 15.9 (6.6-38.0); CALCIUM 8.9 MG/DL (8.5-10.1); CHLORIDE 98 MMOL/L (99-107); CREATININE 4.66 MG/DL (0.40-0.90); GLUCOSE 109 MG/DL (70-104); MAGNESIUM 2.1 MG/DL (1.5-2.4); PHOSPHORUS 3.5 MG/DL (2.3-4.5); POTASSIUM 5.9 MMOL/L (3.5-5.1); SODIUM 136 MMOL/L (135-145); TOTAL CARBON DIOXIDE 28.4 MMOL/L (24-32); eGFR 9 ML/MIN
[2018-06-10] MEDS ORDERED: heparin 1,000unit/ml 10ml vial 10 ML IV ONE (06:34)
[2018-06-10] MEDS ORDERED: epoetin 20,000 units/ml inj IV ONE (06:35)
[2018-06-10] MEDS ORDERED: heparin 1,000 units/ml 10ml inj IV ONE (06:35)
[2018-06-10] MEDS ORDERED: albumin (human) 25% 100ml IV 100 ML IV PRN (06:35)
[2018-06-10] MEDS ORDERED: heparin 1,000 units/ml 10ml inj HE ONE ×2 (06:40)
[2018-06-10] MEDS: lactose-reduced food (Ensure Enlive) - 237ml bottle PO SCH ×2 (08:00→13:07)
[2018-06-10] MEDS: sevelamer carbonate 800mg tablet PO SCH ×2 (08:00→13:00)
[2018-06-10] MEDS: carVEDilol 3.125mg tablet PO SCH (08:00)
[2018-06-10] MEDS: heparin, porcine 5000 units/ml vial SQ SCH (08:00)
[2018-06-10 08:44] VITALS: BP 132/49
[2018-06-10] MEDS: NORMAL SALINE IV SCH (08:45)
[2018-06-10] MEDS: docusate sod 100mg capsule PO SCH (08:45)
[2018-06-10] MEDS: levoTHYROXINE 25mcg tablet PO SCH (08:45)
[2018-06-10] MEDS: CEFTAZIDIME IV SCH (08:45)
[2018-06-10] MEDS: lactobacillus rhamnosus 10,000 MMU CELLS/CAPSULE PO SCH (08:46)
[2018-06-10] MEDS: clopidogrel 75mg tablet PO SCH (08:46)
[2018-06-10] MEDS: midodrine 5mg tablet PO SCH (09:42)
[2018-06-10 10:00] VITALS: BP 100/35
== END 2018-06-10 14:30 | DRG 314 ==
LOC: SSTAY O 11:29 → PCU 3S 16:46 → ORTHO 4S 06-07 06:00
PROVIDERS: ADMIT Internal Medicine Critical Care Medicine; ATTEND Internal Medicine Critical Care Medicine
PROC: B5131ZZ Fluoroscopy of Right Jugular Veins using Low Osmolar Contrast (ICD-10-PCS; 2018-06-05)
PROC: 0JH83XZ Insertion of Tunneled Vascular Access Device into Abdomen Subcutaneous Tissue and Fascia, Percutaneous Approach (ICD-10-PCS; 2018-06-06)
PROC: 5A1D70Z Performance of Urinary Filtration, Intermittent, Less than 6 Hours Per Day (ICD-10-PCS; 2018-06-06)
PROC: 06H033Z Insertion of Infusion Device into Inferior Vena Cava, Percutaneous Approach (ICD-10-PCS; 2018-06-06)
PROC: B549ZZA Ultrasonography of Inferior Vena Cava, Guidance (ICD-10-PCS; 2018-06-06)
PROC: 5A1D70Z Performance of Urinary Filtration, Intermittent, Less than 6 Hours Per Day (ICD-10-PCS; 2018-06-08)
PROC: 5A1D70Z Performance of Urinary Filtration, Intermittent, Less than 6 Hours Per Day (ICD-10-PCS; principal; 2018-06-10)
DX: T82.868A Thrombosis due to vascular prosthetic devices, implants and grafts, initial encounter (principal); N18.6 End stage renal disease; L03.114 Cellulitis of left upper limb; Y83.2 Surgical operation with anastomosis, bypass or graft as the cause of abnormal reaction of the patient, or of later complication, without mention of misadventure at the time of the procedure; Z95.1 Presence of aortocoronary bypass graft; Z79.899 Other long term (current) drug therapy; Z79.890 Hormone replacement therapy; Z82.49 Family history of ischemic heart disease and other diseases of the circulatory system; Y92.89 Other specified places as the place of occurrence of the external cause
CPT/HCPCS: 36415; 36558; 71045; 75860; 76937; 77001; 80048; 80053; 82550; 83605; 83735; 84100; 84145; 84443; 85025; 85610; 85651; 85730; 87070; 97110; 97116; 97162; 97530; 97535; 99152; 99153; A4620; A6212; A6213; A6222; A6253; A6446; A6449; A9270; C1750; C1769; C1894; G0257; J0713; J0885; J1644; J2001; J2250; J3010; J3370; J7030; J7040; Q9967

== ENCOUNTER → 2018-07-08 | Emergency (ER) | payer MEDICARE, BC ==
[~2018-07-08] VITALS: Ht 167.6 cm; Wt 54.5 kg
[2018-07-08 11:59] VITALS: BP 168/76
== END | disposition home or self-care (01) ==
LOC: ER 09:56
DX: S92.352A Displaced fracture of fifth metatarsal bone, left foot, initial encounter for closed fracture (principal); G89.29 Other chronic pain; Z45.2 Encounter for adjustment and management of vascular access device; Z90.49 Acquired absence of other specified parts of digestive tract; Z98.890 Other specified postprocedural states; Z79.899 Other long term (current) drug therapy; W18.30XA Fall on same level, unspecified, initial encounter; Y93.89 Activity, other specified; Y92.129 Unspecified place in nursing home as the place of occurrence of the external cause; Y99.8 Other external cause status
CPT/HCPCS: 29515; 36589; 73630; 99284; 99285

== ENCOUNTER 2018-07-13 10:14 | Outpatient (CLI) | payer MEDICARE, BC ==
[2018-07-13 10:17] VITALS: BP 135/72
== END 2018-07-13 11:30 | disposition home or self-care (01) ==
LOC: ORTHO 10:14
PROVIDERS: ATTEND Nurse Practitioner Family
DX: S92.355A Nondisplaced fracture of fifth metatarsal bone, left foot, initial encounter for closed fracture (principal); I50.9 Heart failure, unspecified; I11.0 Hypertensive heart disease with heart failure; J45.909 Unspecified asthma, uncomplicated; Z90.710 Acquired absence of both cervix and uterus; X58.XXXA Exposure to other specified factors, initial encounter; Y93.89 Activity, other specified; Y92.89 Other specified places as the place of occurrence of the external cause; Y99.8 Other external cause status
CPT/HCPCS: 99213

== ENCOUNTER 2018-08-11 11:01 | Outpatient (CLI) | payer MEDICARE, BC ==
[2018-08-11 11:00] VITALS: BP 142/71
== END 2018-08-11 11:24 | disposition home or self-care (01) ==
LOC: ORTHO 11:01
PROVIDERS: ATTEND Nurse Practitioner Family
DX: S92.352G Displaced fracture of fifth metatarsal bone, left foot, subsequent encounter for fracture with delayed healing (principal); M85.88 Other specified disorders of bone density and structure, other site; I11.0 Hypertensive heart disease with heart failure; I50.9 Heart failure, unspecified; J45.909 Unspecified asthma, uncomplicated; Z90.710 Acquired absence of both cervix and uterus; Z60.2 Problems related to living alone; Z79.899 Other long term (current) drug therapy; W19.XXXD Unspecified fall, subsequent encounter
CPT/HCPCS: 73630

== ENCOUNTER 2018-09-08 13:10 | Outpatient (CLI) | payer MEDICARE, BC ==
[2018-09-08 13:06] VITALS: BP 153/71
== END 2018-09-08 13:47 | disposition home or self-care (01) ==
LOC: ORTHO 13:10
PROVIDERS: ATTEND Nurse Practitioner Family
DX: S92.352G Displaced fracture of fifth metatarsal bone, left foot, subsequent encounter for fracture with delayed healing (principal); M85.88 Other specified disorders of bone density and structure, other site; E78.00 Pure hypercholesterolemia, unspecified; J45.909 Unspecified asthma, uncomplicated; I13.2 Hypertensive heart and chronic kidney disease with heart failure and with stage 5 chronic kidney disease, or end stage renal disease; N18.6 End stage renal disease; I50.9 Heart failure, unspecified; Z99.2 Dependence on renal dialysis; Z98.890 Other specified postprocedural states; Z95.1 Presence of aortocoronary bypass graft; Z79.899 Other long term (current) drug therapy; W19.XXXD Unspecified fall, subsequent encounter
CPT/HCPCS: 73630; 99213

== ENCOUNTER 2018-10-06 13:09 | Outpatient (CLI) | payer MEDICARE, BC ==
[2018-10-06 13:10] VITALS: BP 146/64
== END 2018-10-06 13:39 | disposition home or self-care (01) ==
LOC: ORTHO 13:09
PROVIDERS: ATTEND Nurse Practitioner Family
DX: S92.352G Displaced fracture of fifth metatarsal bone, left foot, subsequent encounter for fracture with delayed healing (principal); E78.00 Pure hypercholesterolemia, unspecified; J45.909 Unspecified asthma, uncomplicated; I13.0 Hypertensive heart and chronic kidney disease with heart failure and stage 1 through stage 4 chronic kidney disease, or unspecified chronic kidney disease; N18.9 Chronic kidney disease, unspecified; I50.9 Heart failure, unspecified; Z98.890 Other specified postprocedural states; Z90.710 Acquired absence of both cervix and uterus; W19.XXXD Unspecified fall, subsequent encounter
CPT/HCPCS: 73630; 99213

== ENCOUNTER 2018-12-18 08:52 | Inpatient (IN) | payer MEDICARE, BC | END 2018-12-28 18:15 | LOC: PCU 3S 12-26 16:50 → ER 08:52 → CICU 2S 11:43 | PROC: 5A1955Z Respiratory Ventilation, Greater than 96 Consecutive Hours (ICD-10-PCS; principal; ~2018-12-18) | PROC: 0BH17EZ Insertion of Endotracheal Airway into Trachea, Via Natural or Artificial Opening (ICD-10-PCS; ~2018-12-18) | DX: A41.9 Sepsis, unspecified organism (principal); J69.0 Pneumonitis due to inhalation of food and vomit; N18.6 End stage renal disease; I12.0 Hypertensive chronic kidney disease with stage 5 chronic kidney disease or end stage renal disease ==

== ENCOUNTER 2019-07-28 12:50 | Emergency (ER) | payer MEDICARE, BC ==
[~2019-07-28] VITALS: Ht 157.5 cm; Wt 52.5 kg
[~2019-07-28 12:50] MED LIST changes: +AMIO200T61 PO; +ATOR20TA66 PO; -FURO80TA87 PO; +HEPA500017 SQ; +IPRA3AMP9 NEB; -MIDO5TAB PO; +MIDO5TAB4 PO; -NIFE60TA69 PO; -SIMV80TA2 PO; -[UNRECOGNIZED DRUG - OTHER] PO
--- NOTE | 2019-07-28 14:23 | NUR ---
SPOKE TO DR SINGH RE: NO ORTHO ORDERS, HE SAID THAT NO THERE ARE NO ORDERS FOR THIS TYPE OF NON DISPLACED FIBIAL FX, AND IF GIVEN CRUTCHES THE PT WOUND BE MORE LIKELY TO FALL, I LET THE PRIMARY RN KNOW
--- NOTE | 2019-07-28 14:48 | NUR ---
[facility] [employer] CALLED HOWEVER NOT COVERED BY INSURANCE. PATIENT HAS NO MEANS OF PAYMENT. FLYING I INSTRUCTOR HAS BEEN PAGED.
[2019-07-28 15:00] VITALS: BP 134/58
== END 2019-07-28 16:07 | disposition home or self-care (01) ==
LOC: ER 12:50
DX: S82.831A Other fracture of upper and lower end of right fibula, initial encounter for closed fracture (principal); E78.00 Pure hypercholesterolemia, unspecified; I10 Essential (primary) hypertension; E03.9 Hypothyroidism, unspecified; G89.29 Other chronic pain; F32.9 Major depressive disorder, single episode, unspecified; Z90.49 Acquired absence of other specified parts of digestive tract; Z98.890 Other specified postprocedural states; Z60.2 Problems related to living alone; Z86.19 Personal history of other infectious and parasitic diseases; Z79.899 Other long term (current) drug therapy; W18.39XA Other fall on same level, initial encounter; Y93.89 Activity, other specified; Y92.89 Other specified places as the place of occurrence of the external cause; Y99.8 Other external cause status
CPT/HCPCS: 73564; 73610; 73630; 99284

== ENCOUNTER 2019-08-01 11:28 | Inpatient (IN) | payer MEDICARE, BC ==
[~2019-08-01] VITALS: Ht 167.6 cm; Wt 50.0 kg
[2019-08-01 12:10] LABS: BASOPHILS # (AUTO) 0.1 X10'3 (0-0.2); BASOPHILS % (AUTO) 0.9 % (0-1); EOSINOPHILS # (AUTO) 0.1 X10'3 (0-0.9); EOSINOPHILS % (AUTO) 1.7 % (0-6); HEMATOCRIT 29.9 % (35.0-45.0); HEMOGLOBIN 10.3 g/dl (12.0-16.0); LYMPHOCYTES # (AUTO) 0.8 X10'3 (1.1-4.8); LYMPHOCYTES % (AUTO) 8.9 % (21-51); MEAN CORPUSCULAR HEMOGLOBIN 34.7 PG (27.0-31.0); MEAN CORPUSCULAR HGB CONC 34.5 g/dL (33.0-36.5); MEAN CORPUSCULAR VOLUME 100.6 FL (78-98); MEAN PLATELET VOLUME 8.6 FL (7.4-10.4); MONOCYTES # (AUTO) 0.7 X10'3 (0-0.9); NEUTROPHILS # (AUTO) 7.2 X10'3 (1.8-7.7); NEUTROPHILS % (AUTO) 80.5 % (42-75); PLATELET COUNT 242 X10'3 (140-440); RED BLOOD COUNT 2.97 X10'6 (4.20-5.60); WHITE BLOOD COUNT 8.9 X10'3 (4.5-11.0)
[2019-08-01 12:20] LABS: PARTIAL THROMBOPLASTIN TIME 26 SECONDS (22-32)
[2019-08-01 12:22] LABS: ALANINE AMINOTRANSFERASE 239 U/L (12-78); ALBUMIN 3.2 G/DL (3.4-5.0); ALKALINE PHOSPHATASE 192 IU/L (46-116); ANION GAP 10 (8-16); ASPARTATE AMINO TRANSFERASE 144 U/L (10-37); BILIRUBIN,TOTAL 0.6 MG/DL (0.1-1.0); BLOOD UREA NITROGEN 92 MG/DL (7-18); BUN/CREATININE RATIO 12.5 (6.6-38.0); CALCIUM 8.7 MG/DL (8.5-10.1); CHLORIDE 102 MMOL/L (99-107); CREATININE 7.37 MG/DL (0.40-0.90); GLUCOSE 153 MG/DL (70-104); POTASSIUM 4.5 MMOL/L (3.5-5.1); SODIUM 143 MMOL/L (135-145); TOTAL PROTEIN 6.5 G/DL (6.4-8.2); eGFR 5 ML/MIN
--- NOTE | 2019-08-01 12:31 | NUR ---
Spoke with Denise WEI regarding patient not producing urine. ERIBERTO stated to cancel UA order.
--- NOTE | 2019-08-01 12:52 | NUR ---
chest xray in progress.
--- NOTE | 2019-08-01 13:54 | NUR ---
pt refuses ct of abd and pelvis at this time, notified ERIBERTO Morris
[2019-08-01] MEDS ORDERED: acetaminophen 325mg tablet PO PRN (15:25)
--- NOTE | 2019-08-01 16:39 | NUR ---
To CT via [facility].
[2019-08-01] MEDS ORDERED: SIMV80TA89 PO (18:38)
[2019-08-01] MEDS ORDERED: LOSA25TA41 PO (18:38)
[2019-08-01] MEDS ORDERED: FURO80TA3 PO (18:38)
[2019-08-01] MEDS ORDERED: NIFE60TA69 PO (18:38)
[2019-08-01] MEDS ORDERED: AMIO200T61 PO (18:41)
[2019-08-01 19:10] VITALS: BP 146/47
[2019-08-01] MEDS: multivitamins, therapeutics tablet PO SCH (21:00)
[2019-08-01] MEDS: losartan 25mg tablet PO SCH (21:38)
[2019-08-01] MEDS: furosemide 40mg tablet PO SCH (21:39)
[2019-08-01] MEDS: NIFEdipine XL 30mg tablet PO SCH (21:39)
[2019-08-01 21:50] VITALS: BP 129/35
[2019-08-01] MEDS: heparin, porcine 5000 units/ml vial SQ SCH (22:07)
[2019-08-01] MEDS: docusate sod 100mg capsule PO SCH (22:07)
[2019-08-02] VITALS (8 sets, daily range): BP systolic 105–156; BP diastolic 33–58
--- NOTE | 2019-08-02 05:45 | NUR ---
OFFERED PAIN MED FOR PT,PT REFUSED.
[2019-08-02] MEDS: traMADol 50MG tablet PO PRN (06:31)
[2019-08-02 06:41] LABS: BASOPHILS # (AUTO) 0.1 X10'3 (0-0.2); BASOPHILS % (AUTO) 0.8 % (0-1); EOSINOPHILS # (AUTO) 0.2 X10'3 (0-0.9); EOSINOPHILS % (AUTO) 3.4 % (0-6); HEMATOCRIT 27.4 % (35.0-45.0); HEMOGLOBIN 9.4 g/dl (12.0-16.0); LYMPHOCYTES # (AUTO) 0.7 X10'3 (1.1-4.8); LYMPHOCYTES % (AUTO) 10.2 % (21-51); MEAN CORPUSCULAR HEMOGLOBIN 34.5 PG (27.0-31.0); MEAN CORPUSCULAR HGB CONC 34.3 g/dL (33.0-36.5); MEAN CORPUSCULAR VOLUME 100.8 FL (78-98); MEAN PLATELET VOLUME 8.7 FL (7.4-10.4); MONOCYTES # (AUTO) 0.7 X10'3 (0-0.9); MONOCYTES % (AUTO) 10.2 % (2-12); NEUTROPHILS # (AUTO) 5.2 X10'3 (1.8-7.7); NEUTROPHILS % (AUTO) 75.4 % (42-75); PLATELET COUNT 198 X10'3 (140-440); RED BLOOD COUNT 2.72 X10'6 (4.20-5.60); RED CELL DISTRIBUTION WIDTH 16.3 % (11.5-14.5); WHITE BLOOD COUNT 6.8 X10'3 (4.5-11.0)
[2019-08-02 07:08] LABS: ALANINE AMINOTRANSFERASE 193 U/L (12-78); ALBUMIN 2.7 G/DL (3.4-5.0); ALBUMIN/GLOBULIN RATIO 0.9 (1.1-1.5); ALKALINE PHOSPHATASE 158 IU/L (46-116); ANION GAP 8 (8-16); ASPARTATE AMINO TRANSFERASE 112 U/L (10-37); BILIRUBIN,TOTAL 0.6 MG/DL (0.1-1.0); BLOOD UREA NITROGEN 98 MG/DL (7-18); BUN/CREATININE RATIO 11.8 (6.6-38.0); CALCIUM 9.3 MG/DL (8.5-10.1); CHLORIDE 102 MMOL/L (99-107); CHOL/HDL RATIO 2.2 (0.00-4.99); CHOLESTEROL 128 MG/DL (0-200); CREATININE 8.29 MG/DL (0.40-0.90); GLUCOSE 90 MG/DL (70-104); HDL CHOLESTEROL 57 MG/DL (35-60); LDL CHOLESTEROL 68 MG/DL (50-100); MAGNESIUM 2.8 MG/DL (1.5-2.4); PHOSPHORUS 3.7 MG/DL (2.3-4.5); POTASSIUM 5.1 MMOL/L (3.5-5.1); SODIUM 141 MMOL/L (135-145); TOTAL CARBON DIOXIDE 30.9 MMOL/L (24-32); TOTAL PROTEIN 5.8 G/DL (6.4-8.2); TRIGLYCERIDES 64 MG/DL (20-135); eGFR 5 ML/MIN
[2019-08-02] MEDS: heparin, porcine 5000 units/ml vial SQ SCH ×2 (08:00→20:00)
[2019-08-02] MEDS ORDERED: normal saline 1000ml 250 ML IV PRN (08:04)
[2019-08-02] MEDS ORDERED: epoetin 20,000 units/ml inj IV ONE (08:05)
[2019-08-02] MEDS ORDERED: LIDOcaine 1% (10mg/ml) 2ml vial SQ ONE (08:05)
[2019-08-02] MEDS: levoTHYROXINE 25mcg tablet PO SCH (09:36)
[2019-08-02] MEDS: amiodarone 200mg tablet PO SCH ×2 (09:37→19:10)
[2019-08-02] MEDS: docusate sod 100mg capsule PO SCH ×2 (09:37→19:10)
[2019-08-02] MEDS: atorvastatin 20mg tablet PO SCH (09:37)
[2019-08-02] MEDS: carVEDilol 3.125mg tablet PO SCH ×2 (09:37→20:00)
[2019-08-02] MEDS: clopidogrel 75mg tablet PO SCH (09:37)
[2019-08-02] MEDS: sevelamer carbonate 800mg tablet PO SCH ×3 (09:39→18:00)
--- NOTE | 2019-08-02 10:00 | NUR ---
Pt was drifting in and out of conciousness, unable to hold head upright, Rapid response called and then cancelled after pt stabilized Addendum: 08/02/19 at 1143 by Asad MCKINNEY Continuing to monitor patient
[2019-08-02] MEDS: midodrine 5mg tablet PO SCH (12:49)
--- NOTE | 2019-08-02 18:15 | NUR ---
Patient in room ORTHO 4007. I have received report from Keira HERRON and Matthew MORENO and had the opportunity to ask questions and assume patient care.
--- NOTE | 2019-08-02 18:52 | NUR ---
Student documentation: I have reviewed and agree with all interventions, assessments performed and documented by Matthew NS. Student Medication Administration: For this medication-pass time frame, all medication were reviewed, dispensed, administered and documented per hospital policy by Matthew NS.
--- NOTE | 2019-08-02 18:53 | NUR ---
Problems reprioritized. Patient report given, questions answered & plan of care reviewed with Maite HERRON.
[2019-08-02] MEDS: NIFEdipine XL 30mg tablet PO SCH (20:39)
[2019-08-02] MEDS: furosemide 40mg tablet PO SCH (20:39)
[2019-08-02] MEDS: losartan 25mg tablet PO SCH (20:41)
[2019-08-02] MEDS: multivitamins, therapeutics tablet PO SCH (20:41)
[2019-08-03] VITALS (7 sets, daily range): BP systolic 122–177; BP diastolic 37–103
[2019-08-03 05:46] LABS: BASOPHILS # (AUTO) 0.1 X10'3 (0-0.2); BASOPHILS % (AUTO) 1.2 % (0-1); EOSINOPHILS # (AUTO) 0.2 X10'3 (0-0.9); EOSINOPHILS % (AUTO) 3.8 % (0-6); HEMOGLOBIN 9.5 g/dl (12.0-16.0); LYMPHOCYTES # (AUTO) 0.8 X10'3 (1.1-4.8); MEAN CORPUSCULAR HEMOGLOBIN 34.3 PG (27.0-31.0); MEAN CORPUSCULAR HGB CONC 33.8 g/dL (33.0-36.5); MEAN CORPUSCULAR VOLUME 101.6 FL (78-98); MEAN PLATELET VOLUME 8.7 FL (7.4-10.4); MONOCYTES # (AUTO) 0.7 X10'3 (0-0.9); MONOCYTES % (AUTO) 14.7 % (2-12); NEUTROPHILS # (AUTO) 3.3 X10'3 (1.8-7.7); NEUTROPHILS % (AUTO) 65.3 % (42-75); PLATELET COUNT 190 X10'3 (140-440); RED BLOOD COUNT 2.76 X10'6 (4.20-5.60); RED CELL DISTRIBUTION WIDTH 16.3 % (11.5-14.5); WHITE BLOOD COUNT 5.1 X10'3 (4.5-11.0)
--- NOTE | 2019-08-03 06:29 | NUR ---
Problems reprioritized. Patient report given, questions answered & plan of care reviewed with Naseem HERRON.
--- NOTE | 2019-08-03 06:30 | NUR ---
Patient in room ORTHO 4007. I have received report from Leanne HERRON and had the opportunity to ask questions and assume patient care.
[2019-08-03 06:36] LABS: ALANINE AMINOTRANSFERASE 196 U/L (12-78); ALBUMIN 2.5 G/DL (3.4-5.0); ALBUMIN/GLOBULIN RATIO 0.8 (1.1-1.5); ALKALINE PHOSPHATASE 162 IU/L (46-116); ANION GAP 7 (8-16); ASPARTATE AMINO TRANSFERASE 127 U/L (10-37); BILIRUBIN,TOTAL 0.6 MG/DL (0.1-1.0); BLOOD UREA NITROGEN 31 MG/DL (7-18); BUN/CREATININE RATIO 7.9 (6.6-38.0); CALCIUM 8.1 MG/DL (8.5-10.1); CHLORIDE 104 MMOL/L (99-107); CREATININE 3.93 MG/DL (0.40-0.90); GLUCOSE 77 MG/DL (70-104); MAGNESIUM 2.1 MG/DL (1.5-2.4); PHOSPHORUS 2.9 MG/DL (2.3-4.5); POTASSIUM 4.1 MMOL/L (3.5-5.1); SODIUM 142 MMOL/L (135-145); TOTAL CARBON DIOXIDE 31.1 MMOL/L (24-32); TOTAL PROTEIN 5.7 G/DL (6.4-8.2); eGFR 11 ML/MIN
[2019-08-03] MEDS: sevelamer carbonate 800mg tablet PO SCH ×3 (07:51→18:00)
[2019-08-03] MEDS: docusate sod 100mg capsule PO SCH ×2 (07:52→19:19)
[2019-08-03] MEDS: clopidogrel 75mg tablet PO SCH (07:52)
[2019-08-03] MEDS: amiodarone 200mg tablet PO SCH ×2 (07:52→19:20)
[2019-08-03] MEDS: levoTHYROXINE 25mcg tablet PO SCH (07:52)
[2019-08-03] MEDS: atorvastatin 20mg tablet PO SCH (07:52)
[2019-08-03] MEDS: heparin, porcine 5000 units/ml vial SQ SCH ×2 (07:55→19:20)
[2019-08-03] MEDS: carVEDilol 3.125mg tablet PO SCH ×2 (07:55→19:20)
--- NOTE | 2019-08-03 08:30 | NUR ---
Orthostatic VS obtained, however unable to perform standing VS. Pt unable to stand, complains of right leg pain, unable to bear weight, and feeling dizzy when standing. Supine and sitting VS obtained.
[2019-08-03] MEDS: traMADol 50MG tablet PO PRN (09:50)
--- NOTE | 2019-08-03 13:15 | NUR ---
Patient became nauseated after getting back from the bedside commode and vomited, order received from MD for Zofran but patient refused med she said she did not want it and was feeling better. will continue to monitor
[2019-08-03] MEDS ORDERED: ondansetron/PF 4mg/2ml inj IV PRN (13:20)
--- NOTE | 2019-08-03 18:40 | NUR ---
Problems reprioritized. Patient report given, questions answered & plan of care reviewed with Daily HERRON.
--- NOTE | 2019-08-03 19:30 | NUR ---
Patient in room ORTHO 4007. I have received report from Roula Mcnair and had the opportunity to ask questions and assume patient care.Warm blanket given to pt. Addendum: 08/03/19 at 1941 by Jamar Berry RN Amended: Links added.
[2019-08-03] MEDS: furosemide 40mg tablet PO SCH (21:12)
[2019-08-03] MEDS: losartan 25mg tablet PO SCH (21:13)
[2019-08-03] MEDS: NIFEdipine XL 30mg tablet PO SCH (21:13)
[2019-08-03] MEDS: multivitamins, therapeutics tablet PO SCH (21:13)
--- NOTE | 2019-08-03 21:23 | NUR ---
pt took meds, was nauseated and had small emesis, and was nauseated. Pt denies nausea at this time, refuses zofran. Ptc/o pain 07/08, but declines any pain medication, states her pain will get better with rest. poc with pillows. Addendum: 08/03/19 at 2125 by Jamar Berry RN Amended: Links added.
[2019-08-04] VITALS (8 sets, daily range): BP systolic 107–138; BP diastolic 37–74
[2019-08-04 06:11] LABS: BASOPHILS # (AUTO) 0.1 X10'3 (0-0.2); BASOPHILS % (AUTO) 0.3 % (0-1); EOSINOPHILS % (AUTO) 0 % (0-6); HEMOGLOBIN 9.5 g/dl (12.0-16.0); LYMPHOCYTES # (AUTO) 0.5 X10'3 (1.1-4.8); LYMPHOCYTES % (AUTO) 2.5 % (21-51); MEAN CORPUSCULAR HEMOGLOBIN 34.3 PG (27.0-31.0); MEAN CORPUSCULAR HGB CONC 33.8 g/dL (33.0-36.5); MEAN CORPUSCULAR VOLUME 101.6 FL (78-98); MEAN PLATELET VOLUME 8.9 FL (7.4-10.4); MONOCYTES # (AUTO) 0.8 X10'3 (0-0.9); MONOCYTES % (AUTO) 4.3 % (2-12); NEUTROPHILS # (AUTO) 18.2 X10'3 (1.8-7.7); NEUTROPHILS % (AUTO) 92.9 % (42-75); PLATELET COUNT 182 X10'3 (140-440); RED BLOOD COUNT 2.76 X10'6 (4.20-5.60); RED CELL DISTRIBUTION WIDTH 15.4 % (11.5-14.5); WHITE BLOOD COUNT 19.6 X10'3 (4.5-11.0)
[2019-08-04 06:22] LABS: ALBUMIN 2.4 G/DL (3.4-5.0); ALBUMIN/GLOBULIN RATIO 0.8 (1.1-1.5); ANION GAP 6 (8-16); ASPARTATE AMINO TRANSFERASE 140 U/L (10-37); BILIRUBIN,TOTAL 0.5 MG/DL (0.1-1.0); BLOOD UREA NITROGEN 45 MG/DL (7-18); BUN/CREATININE RATIO 8.5 (6.6-38.0); CALCIUM 8.1 MG/DL (8.5-10.1); CHLORIDE 103 MMOL/L (99-107); CREATININE 5.29 MG/DL (0.40-0.90); GLUCOSE 109 MG/DL (70-104); MAGNESIUM 2.2 MG/DL (1.5-2.4); PHOSPHORUS 3.3 MG/DL (2.3-4.5); POTASSIUM 4.8 MMOL/L (3.5-5.1); SODIUM 140 MMOL/L (135-145); TOTAL CARBON DIOXIDE 30.9 MMOL/L (24-32); TOTAL PROTEIN 5.5 G/DL (6.4-8.2); eGFR 8 ML/MIN
[2019-08-04 06:23] LABS: ALANINE AMINOTRANSFERASE 217 U/L (12-78); ALKALINE PHOSPHATASE 161 IU/L (46-116)
--- NOTE | 2019-08-04 06:30 | NUR ---
Problems reprioritized. Patient report given, questions answered & plan of care reviewed with RN. Addendum: 08/04/19 at 0631 by Jamar Berry RN Amended: Links added.
--- NOTE | 2019-08-04 06:42 | NUR ---
Patient in room ORTHO 4007. I have received report from Renee HERRON and had the opportunity to ask questions and assume patient care.
--- NOTE | 2019-08-04 06:50 | NUR ---
Patient in room ORTHO 4007. I have received report from Renee HERRON and had the opportunity to ask questions and assume patient care.
[2019-08-04] MEDS: levoTHYROXINE 25mcg tablet PO SCH (07:23)
[2019-08-04] MEDS: midodrine 5mg tablet PO SCH ×2 (07:24→17:44)
[2019-08-04] MEDS: sevelamer carbonate 800mg tablet PO SCH ×4 (07:25→19:29)
[2019-08-04] MEDS: clopidogrel 75mg tablet PO SCH (07:27)
[2019-08-04] MEDS: atorvastatin 20mg tablet PO SCH (07:27)
[2019-08-04] MEDS: docusate sod 100mg capsule PO SCH ×2 (07:27→21:19)
[2019-08-04] MEDS: amiodarone 200mg tablet PO SCH ×2 (07:32→21:19)
[2019-08-04] MEDS: carVEDilol 3.125mg tablet PO SCH ×2 (07:33→20:00)
[2019-08-04] MEDS: heparin, porcine 5000 units/ml vial SQ SCH ×2 (07:33→20:00)
--- NOTE | 2019-08-04 07:36 | NUR ---
Patient refused Heparin this AM.
--- NOTE | 2019-08-04 07:37 | NUR ---
Muriel held this AM. HR 55
[2019-08-04] MEDS ORDERED: levoFLOXACIN 250mg tablet PO SCH (08:55)
[2019-08-04] MEDS ORDERED: epoetin 20,000 units/ml inj IV ONE (09:45)
[2019-08-04] MEDS ORDERED: LIDOcaine 1% (10mg/ml) 2ml vial SQ ONE (09:45)
--- NOTE | 2019-08-04 11:43 | NUR ---
Student documentation: I have reviewed all interventions, assessments performed and documented by Micheline Tamez. Student Medication Administration: For this medication-pass time frame, all medication were reviewed, dispensed, administered and documented per hospital policy by Micheline OLIVERA [facility].
--- NOTE | 2019-08-04 11:56 | NUR ---
Patient report given, to Naseem HERRON.
--- NOTE | 2019-08-04 14:48 | NUR ---
firmware engineer called to see when patients dialysis will be done so she can dc to rehab, RN mackenziet be able to be here till after 4 so patient mackenziet b done until 1929 or 1999, case management made aware and will continue to monitor patient
--- NOTE | 2019-08-04 15:06 | NUR ---
UNABLE TO GET STANDING ORTHOSTATIC BP Addendum: 08/04/19 at 1506 by Naseem Meyers RN Amended: Links added.
--- NOTE | 2019-08-04 18:10 | NUR ---
Problems reprioritized. Patient report given, questions answered & plan of care reviewed with Nubia HERRON.
[2019-08-04] MEDS: multivitamins, therapeutics tablet PO SCH (21:00)
[2019-08-04] MEDS: lactobacillus rhamnosus 10,000 MMU CELLS/CAPSULE PO SCH (21:20)
[2019-08-04] MEDS: furosemide 40mg tablet PO SCH (22:53)
[2019-08-04] MEDS: losartan 25mg tablet PO SCH (22:53)
[2019-08-04] MEDS: NIFEdipine XL 30mg tablet PO SCH (22:54)
[2019-08-05 06:00] VITALS: BP 122/74
[2019-08-05 06:32] LABS: ALANINE AMINOTRANSFERASE 280 U/L (12-78); ALBUMIN 2.4 G/DL (3.4-5.0); ALBUMIN/GLOBULIN RATIO 0.7 (1.1-1.5); ALKALINE PHOSPHATASE 158 IU/L (46-116); ANION GAP 5 (8-16); ASPARTATE AMINO TRANSFERASE 192 U/L (10-37); BILIRUBIN,TOTAL 0.6 MG/DL (0.1-1.0); BLOOD UREA NITROGEN 18 MG/DL (7-18); BUN/CREATININE RATIO 6.3 (6.6-38.0); CALCIUM 8.1 MG/DL (8.5-10.1); CHLORIDE 102 MMOL/L (99-107); CREATININE 2.86 MG/DL (0.40-0.90); GLUCOSE 75 MG/DL (70-104); MAGNESIUM 1.9 MG/DL (1.5-2.4); PHOSPHORUS 2.1 MG/DL (2.3-4.5); POTASSIUM 4.2 MMOL/L (3.5-5.1); SODIUM 139 MMOL/L (135-145); TOTAL CARBON DIOXIDE 32.3 MMOL/L (24-32); TOTAL PROTEIN 5.7 G/DL (6.4-8.2); eGFR 16 ML/MIN
[2019-08-05 06:33] LABS: BASOPHILS % (AUTO) 0.4 % (0-1); EOSINOPHILS # (AUTO) 0.1 X10'3 (0-0.9); EOSINOPHILS % (AUTO) 1.3 % (0-6); HEMATOCRIT 28.7 % (35.0-45.0); HEMOGLOBIN 9.7 g/dl (12.0-16.0); LYMPHOCYTES # (AUTO) 0.5 X10'3 (1.1-4.8); LYMPHOCYTES % (AUTO) 5.8 % (21-51); MEAN CORPUSCULAR HEMOGLOBIN 34.6 PG (27.0-31.0); MEAN CORPUSCULAR HGB CONC 33.9 g/dL (33.0-36.5); MEAN CORPUSCULAR VOLUME 102.1 FL (78-98); MONOCYTES # (AUTO) 0.7 X10'3 (0-0.9); NEUTROPHILS # (AUTO) 7.2 X10'3 (1.8-7.7); NEUTROPHILS % (AUTO) 84.5 % (42-75); PLATELET COUNT 189 X10'3 (140-440); RED BLOOD COUNT 2.81 X10'6 (4.20-5.60); RED CELL DISTRIBUTION WIDTH 15.8 % (11.5-14.5); WHITE BLOOD COUNT 8.6 X10'3 (4.5-11.0)
--- NOTE | 2019-08-05 06:51 | NUR ---
Patient in room ORTHO 4007. I have received report from Nubia HERRON and had the opportunity to ask questions and assume patient care.
[2019-08-05] MEDS: sevelamer carbonate 800mg tablet PO SCH (07:26)
[2019-08-05] MEDS: docusate sod 100mg capsule PO SCH (07:27)
[2019-08-05] MEDS: levoTHYROXINE 25mcg tablet PO SCH (07:27)
[2019-08-05] MEDS: amiodarone 200mg tablet PO SCH (07:28)
[2019-08-05] MEDS: clopidogrel 75mg tablet PO SCH (07:28)
[2019-08-05] MEDS: lactobacillus rhamnosus 10,000 MMU CELLS/CAPSULE PO SCH (07:28)
[2019-08-05] MEDS: atorvastatin 20mg tablet PO SCH (07:29)
[2019-08-05] MEDS: heparin, porcine 5000 units/ml vial SQ SCH (07:30)
[2019-08-05] MEDS: carVEDilol 3.125mg tablet PO SCH (07:30)
[2019-08-05 10:00] VITALS: BP 110/29
--- NOTE | 2019-08-05 10:24 | NUR ---
report called to [facility] to Souleymane SHEARER
--- NOTE | 2019-08-05 10:30 | NUR ---
Patient discharged to [facility] post acute rehab with all belongings, patient transported via [facility], patient stable upon discharge
[2019-08-05 10:56] VITALS: BP 131/86
== END 2019-08-05 10:30 | DRG 562 ==
LOC: ER 11:29 → ED HOLD 15:25 → ORTHO 4S 18:57
PROVIDERS: ADMIT Internal Medicine Critical Care Medicine; ATTEND Internal Medicine Critical Care Medicine
PROC: 5A1D70Z Performance of Urinary Filtration, Intermittent, Less than 6 Hours Per Day (ICD-10-PCS; principal; 2019-08-02)
PROC: 5A1D70Z Performance of Urinary Filtration, Intermittent, Less than 6 Hours Per Day (ICD-10-PCS; 2019-08-04)
DX: S82.209A Unspecified fracture of shaft of unspecified tibia, initial encounter for closed fracture (principal); N18.6 End stage renal disease; Z68.1 Body mass index [BMI] 19.9 or less, adult; S82.831A Other fracture of upper and lower end of right fibula, initial encounter for closed fracture; Z60.2 Problems related to living alone; F32.9 Major depressive disorder, single episode, unspecified; G89.29 Other chronic pain; M54.9 Dorsalgia, unspecified; W18.39XA Other fall on same level, initial encounter; R29.6 Repeated falls; R74.8 Abnormal levels of other serum enzymes; M25.532 Pain in left wrist; E05.90 Thyrotoxicosis, unspecified without thyrotoxic crisis or storm; Z79.899 Other long term (current) drug therapy; Z79.890 Hormone replacement therapy; Z82.49 Family history of ischemic heart disease and other diseases of the circulatory system; Z90.49 Acquired absence of other specified parts of digestive tract; Y93.89 Activity, other specified; Y92.098 Other place in other non-institutional residence as the place of occurrence of the external cause; Y99.8 Other external cause status; R62.7 Adult failure to thrive; R63.0 Anorexia
CPT/HCPCS: 36415; 71045; 73110; 74176; 80053; 80061; 83735; 84100; 84439; 84443; 85025; 85610; 85730; 87081; 93005; 97110; 97116; 97530; 99285; G0257; G0378; J1644; J2001; J8597; Q4081

== ENCOUNTER 2019-08-18 12:22 | Inpatient (IN) | payer MEDICARE, BC ==
[~2019-08-18] VITALS: Ht 167.6 cm; Wt 50.0 kg
[~2019-08-18 12:22] MED LIST changes: -ATOR20TA66 PO; +FURO80TA3 PO; -IPRA3AMP9 NEB; +LOSA25TA41 PO; +NIFE60TA69 PO; +SIMV80TA89 PO
[2019-08-18 14:31] LABS: BASOPHILS # (AUTO) 0.1 X10'3 (0-0.2); BASOPHILS % (AUTO) 0.8 % (0-1); EOSINOPHILS # (AUTO) 0.1 X10'3 (0-0.9); EOSINOPHILS % (AUTO) 0.8 % (0-6); HEMATOCRIT 26.9 % (35.0-45.0); HEMOGLOBIN 9.1 g/dl (12.0-16.0); LYMPHOCYTES # (AUTO) 0.6 X10'3 (1.1-4.8); LYMPHOCYTES % (AUTO) 8.3 % (21-51); MEAN CORPUSCULAR HEMOGLOBIN 34.1 PG (27.0-31.0); MEAN CORPUSCULAR HGB CONC 33.8 g/dL (33.0-36.5); MEAN CORPUSCULAR VOLUME 100.8 FL (78-98); MEAN PLATELET VOLUME 8.3 FL (7.4-10.4); MONOCYTES # (AUTO) 0.7 X10'3 (0-0.9); MONOCYTES % (AUTO) 9.9 % (2-12); NEUTROPHILS # (AUTO) 5.6 X10'3 (1.8-7.7); NEUTROPHILS % (AUTO) 80.2 % (42-75); PLATELET COUNT 195 X10'3 (140-440); RED BLOOD COUNT 2.67 X10'6 (4.20-5.60); WHITE BLOOD COUNT 6.9 X10'3 (4.5-11.0)
[2019-08-18 14:44] LABS: ALANINE AMINOTRANSFERASE 114 U/L (12-78); ALBUMIN 2.4 G/DL (3.4-5.0); ALBUMIN/GLOBULIN RATIO 0.8 (1.1-1.5); ALKALINE PHOSPHATASE 174 IU/L (46-116); ANION GAP 4 (8-16); ASPARTATE AMINO TRANSFERASE 111 U/L (10-37); BILIRUBIN,TOTAL 0.4 MG/DL (0.1-1.0); BLOOD UREA NITROGEN 45 MG/DL (7-18); BUN/CREATININE RATIO 8.7 (6.6-38.0); CALCIUM 7.7 MG/DL (8.5-10.1); CHLORIDE 102 MMOL/L (99-107); CREATININE 5.15 MG/DL (0.40-0.90); GLUCOSE 135 MG/DL (70-104); SODIUM 140 MMOL/L (135-145); TOTAL CARBON DIOXIDE 33.6 MMOL/L (24-32); TOTAL PROTEIN 5.3 G/DL (6.4-8.2); eGFR 8 ML/MIN
--- NOTE | 2019-08-18 15:31 | NUR ---
Vasc at bedside
[2019-08-18] MEDS ORDERED: SEVE800T7 PO (15:47)
[2019-08-18] MEDS ORDERED: MIDO10TA PO (15:47)
[2019-08-18] MEDS ORDERED: magnesium hydroxide 30ml (MOM) UD suspension PO PRN (16:00)
[2019-08-18] MEDS ORDERED: magnesium 2GM in 50ml NS 50 ML IV PRN (16:00)
[2019-08-18] MEDS ORDERED: potassium Cl 20 mEq SR tablet PO PRN ×2 (16:00)
[2019-08-18] MEDS ORDERED: potassium CL 10mEq/100ml bag 100 ML IV PRN ×2 (16:00)
[2019-08-18] MEDS ORDERED: magnesium 4gm in 100ml NS 100 ML IV PRN (16:00)
[2019-08-18] MEDS ORDERED: magnesium Cl slow-release 64mg tablet PO PRN (16:00)
[2019-08-18] MEDS ORDERED: morphine 2 MG/ML inj. syringe IV PRN (16:00)
[2019-08-18] MEDS ORDERED: acetaminophen 325mg tablet PO PRN ×2 (16:00)
[2019-08-18] MEDS ORDERED: mag hydrox/Alum hydrox/simeth 30ml oral suspension PO PRN (16:00)
[2019-08-18] MEDS ORDERED: ondansetron/PF 4mg/2ml inj IV PRN (16:00)
--- NOTE | 2019-08-18 16:59 | NUR ---
Received patient report from ED from GOPAL Oshea. Awaiting for arrival to room 3028H.
--- NOTE | 2019-08-18 17:20 | NUR ---
Patient arrived to room 3026A. Vital signs: O2 94% on room air, HR 72, BP 154/52, RR 16. Patient has nonskid socks on, call light in reach, bed locked and lowered, and in no acute distress.
--- NOTE | 2019-08-18 17:35 | NUR ---
Paged Dr. Matias: PAGER ID: [phone] MESSAGE: RE: Lazara Wells [id number]. New admit. Would you like a renal diet ordered for patient? Thank you. Luciana [phone]
--- NOTE | 2019-08-18 18:10 | NUR ---
Problems reprioritized. Patient report given, questions answered & plan of care reviewed with GOPAL Hill. Patient stable at transfer of care.
--- NOTE | 2019-08-18 18:15 | NUR ---
Patient in room PCU 3026. I have received report from Luciana RN and Demetrice RN and had the opportunity to ask questions and assume patient care. Patient is resting with her family at bedside. Will continue to monitor.
--- NOTE | 2019-08-18 18:24 | NUR ---
Problems reprioritized. Patient report given, questions answered & plan of care reviewed with GOPAL Hill. Patient stable at transfer of care.
--- NOTE | 2019-08-18 18:25 | NUR ---
[place] documentation: I have reviewed and agree with all interventions, assessments performed and documented by GOPAL Suresh. [place] Medication Administration: For this medication-pass time frame, all medication were reviewed, dispensed, administered and documented per hospital policy by GOPAL Suresh.
[2019-08-18] MEDS: NIFEdipine XL 30mg tablet PO SCH (21:19)
[2019-08-18] MEDS: furosemide 40mg tablet PO SCH (21:20)
[2019-08-18] MEDS: losartan 25mg tablet PO SCH (21:20)
[2019-08-18 21:49] VITALS: BP 157/48
[2019-08-19 02:18] LABS: BASOPHILS # (AUTO) 0.1 X10'3 (0-0.2); BASOPHILS % (AUTO) 1.1 % (0-1); EOSINOPHILS # (AUTO) 0.1 X10'3 (0-0.9); HEMOGLOBIN 10.1 g/dl (12.0-16.0); LYMPHOCYTES # (AUTO) 0.9 X10'3 (1.1-4.8); MEAN CORPUSCULAR HEMOGLOBIN 34.4 PG (27.0-31.0); MEAN CORPUSCULAR VOLUME 98.4 FL (78-98); MEAN PLATELET VOLUME 8.1 FL (7.4-10.4); MONOCYTES # (AUTO) 0.8 X10'3 (0-0.9); MONOCYTES % (AUTO) 13.4 % (2-12); NEUTROPHILS # (AUTO) 4.3 X10'3 (1.8-7.7); NEUTROPHILS % (AUTO) 70.5 % (42-75); PLATELET COUNT 207 X10'3 (140-440); RED BLOOD COUNT 2.94 X10'6 (4.20-5.60); RED CELL DISTRIBUTION WIDTH 15.4 % (11.5-14.5); WHITE BLOOD COUNT 6.1 X10'3 (4.5-11.0)
[2019-08-19 02:38] LABS: ANION GAP 7 (8-16); BLOOD UREA NITROGEN 50 MG/DL (7-18); BUN/CREATININE RATIO 8.8 (6.6-38.0); CHLORIDE 101 MMOL/L (99-107); GLUCOSE 74 MG/DL (70-104); POTASSIUM 4.3 MMOL/L (3.5-5.1); SODIUM 140 MMOL/L (135-145); TOTAL CARBON DIOXIDE 31.6 MMOL/L (24-32)
[2019-08-19 02:39] LABS: ALANINE AMINOTRANSFERASE 115 U/L (12-78); ALBUMIN 2.5 G/DL (3.4-5.0); ALBUMIN/GLOBULIN RATIO 0.8 (1.1-1.5); ALKALINE PHOSPHATASE 174 IU/L (46-116); ASPARTATE AMINO TRANSFERASE 104 U/L (10-37); BILIRUBIN,TOTAL 0.4 MG/DL (0.1-1.0); CALCIUM 7.9 MG/DL (8.5-10.1); MAGNESIUM 2.1 MG/DL (1.5-2.4); TOTAL PROTEIN 5.5 G/DL (6.4-8.2); eGFR 7 ML/MIN
[2019-08-19 03:00] VITALS: BP 120/54
[2019-08-19 06:00] VITALS: BP 131/75
--- NOTE | 2019-08-19 06:42 | NUR ---
Problems reprioritized. Patient report given, questions answered & plan of care reviewed with Cori HERRON.
--- NOTE | 2019-08-19 06:45 | NUR ---
Patient in room PCU 3026. I have received report from Liz HERRON and had the opportunity to ask questions and assume patient care.
[2019-08-19] MEDS: carVEDilol 3.125mg tablet PO SCH ×2 (07:43→20:54)
[2019-08-19] MEDS: levoTHYROXINE 25mcg tablet PO SCH (07:43)
[2019-08-19] MEDS: amiodarone 200mg tablet PO SCH ×2 (07:44→20:53)
[2019-08-19] MEDS: midodrine tablet 2.5 MG TABLET PO SCH (07:44)
[2019-08-19] MEDS: clopidogrel 75mg tablet PO SCH (08:00)
[2019-08-19] MEDS: K and/or MAG REPLACEMENT MC SCH (08:00)
[2019-08-19 11:00] VITALS: BP 139/57
[2019-08-19] MEDS: NUT.TX.IMP.RENAL FXN,LAC-REDUC (Nepro) 237 ML VANILLA PO SCH ×2 (13:00→18:00)
[2019-08-19 15:00] VITALS: BP 145/86
--- NOTE | 2019-08-19 18:28 | NUR ---
Problems reprioritized. Patient report given, questions answered & plan of care reviewed with Liz HERRON. Patient stable at time of transfer of care.
[2019-08-19 19:00] VITALS: BP 149/50
[2019-08-19] MEDS: NIFEdipine XL 30mg tablet PO SCH (20:53)
[2019-08-19] MEDS: furosemide 40mg tablet PO SCH (20:54)
[2019-08-19] MEDS: losartan 25mg tablet PO SCH (20:54)
[2019-08-19 23:00] VITALS: BP 123/46
[2019-08-20] MEDS: HYDROcodone/acetaminophen 5mg/325mg tablet PO PRN ×2 (01:16→10:30)
[2019-08-20 03:00] VITALS: BP 131/51
[2019-08-20] MEDS: morphine 2 MG/ML inj. syringe IV PRN ×2 (04:18→19:06)
[2019-08-20 05:24] LABS: BASOPHILS # (AUTO) 0.1 X10'3 (0-0.2); BASOPHILS % (AUTO) 1.2 % (0-1); EOSINOPHILS # (AUTO) 0.1 X10'3 (0-0.9); EOSINOPHILS % (AUTO) 1.4 % (0-6); HEMATOCRIT 29.2 % (35.0-45.0); HEMOGLOBIN 9.9 g/dl (12.0-16.0); LYMPHOCYTES # (AUTO) 0.8 X10'3 (1.1-4.8); LYMPHOCYTES % (AUTO) 12.3 % (21-51); MEAN CORPUSCULAR HGB CONC 33.9 g/dL (33.0-36.5); MEAN CORPUSCULAR VOLUME 100.4 FL (78-98); MEAN PLATELET VOLUME 8.5 FL (7.4-10.4); MONOCYTES % (AUTO) 16.1 % (2-12); NEUTROPHILS # (AUTO) 4.3 X10'3 (1.8-7.7); PLATELET COUNT 201 X10'3 (140-440); RED BLOOD COUNT 2.91 X10'6 (4.20-5.60); RED CELL DISTRIBUTION WIDTH 15.9 % (11.5-14.5); WHITE BLOOD COUNT 6.2 X10'3 (4.5-11.0)
[2019-08-20 05:38] LABS: ANION GAP 8 (8-16); BLOOD UREA NITROGEN 65 MG/DL (7-18); BUN/CREATININE RATIO 9.9 (6.6-38.0); CALCIUM 8.1 MG/DL (8.5-10.1); CHLORIDE 100 MMOL/L (99-107); CREATININE 6.59 MG/DL (0.40-0.90); GLUCOSE 73 MG/DL (70-104); POTASSIUM 4.6 MMOL/L (3.5-5.1); SODIUM 139 MMOL/L (135-145); TOTAL CARBON DIOXIDE 30.6 MMOL/L (24-32); eGFR 6 ML/MIN
[2019-08-20 05:39] LABS: ALANINE AMINOTRANSFERASE 107 U/L (12-78); ALBUMIN 2.5 G/DL (3.4-5.0); ALBUMIN/GLOBULIN RATIO 0.8 (1.1-1.5); ALKALINE PHOSPHATASE 161 IU/L (46-116); ASPARTATE AMINO TRANSFERASE 91 U/L (10-37); BILIRUBIN,TOTAL 0.4 MG/DL (0.1-1.0); MAGNESIUM 2.2 MG/DL (1.5-2.4); TOTAL PROTEIN 5.5 G/DL (6.4-8.2)
[2019-08-20 06:00] VITALS: BP 126/41
--- NOTE | 2019-08-20 06:15 | NUR ---
Patient in room PCU 3026. I have received report from Liz HERRON and had the opportunity to ask questions and assume patient care.
--- NOTE | 2019-08-20 06:16 | NUR ---
Problems reprioritized. Patient report given, questions answered & plan of care reviewed with Cori HERRON.
[2019-08-20] MEDS: carVEDilol 3.125mg tablet PO SCH ×2 (07:44→19:05)
[2019-08-20] MEDS: levoTHYROXINE 25mcg tablet PO SCH (07:44)
[2019-08-20] MEDS: amiodarone 200mg tablet PO SCH ×2 (07:44→19:05)
[2019-08-20] MEDS: midodrine tablet 2.5 MG TABLET PO SCH (07:45)
[2019-08-20] MEDS: NUT.TX.IMP.RENAL FXN,LAC-REDUC (Nepro) 237 ML VANILLA PO SCH ×3 (07:48→18:00)
[2019-08-20] MEDS: K and/or MAG REPLACEMENT MC SCH (07:51)
[2019-08-20] MEDS: clopidogrel 75mg tablet PO SCH (08:00)
[2019-08-20] MEDS ORDERED: normal saline 1000ml 250 ML IV PRN (09:43)
[2019-08-20] MEDS ORDERED: LIDOcaine 1% (10mg/ml) 2ml vial SQ ONE (09:45)
[2019-08-20] MEDS ORDERED: epoetin 20,000 units/ml inj IV ONE (09:45)
[2019-08-20] MEDS ORDERED: heparin 1,000 units/ml 10ml inj IV ONE (09:45)
[2019-08-20 11:00] VITALS: BP 126/50
[2019-08-20 15:00] VITALS: BP 123/56
--- NOTE | 2019-08-20 18:30 | NUR ---
Problems reprioritized. Patient report given, questions answered & plan of care reviewed with Liz HERRON. Patient stable at time of transfer of care.
[2019-08-20 19:00] VITALS: BP 144/55
--- NOTE | 2019-08-20 19:08 | NUR ---
Called and notified primary RN that fistulagram has been deferred until Friday per Dr Mo. Per Dr Mayen's note, patient can discharge and have this done outpatient. IR to follow up as needed.
[2019-08-20] MEDS: losartan 25mg tablet PO SCH (20:24)
[2019-08-20] MEDS: furosemide 40mg tablet PO SCH (20:24)
[2019-08-20] MEDS: NIFEdipine XL 30mg tablet PO SCH (20:24)
[2019-08-20 23:00] VITALS: BP 147/51
[2019-08-21 03:00] VITALS: BP 158/59
[2019-08-21 05:32] LABS: BASOPHILS # (AUTO) 0.1 X10'3 (0-0.2); BASOPHILS % (AUTO) 1.4 % (0-1); EOSINOPHILS # (AUTO) 0.1 X10'3 (0-0.9); HEMATOCRIT 30.9 % (35.0-45.0); HEMOGLOBIN 10.4 g/dl (12.0-16.0); LYMPHOCYTES # (AUTO) 0.6 X10'3 (1.1-4.8); LYMPHOCYTES % (AUTO) 9.1 % (21-51); MEAN CORPUSCULAR HGB CONC 33.8 g/dL (33.0-36.5); MEAN CORPUSCULAR VOLUME 100.8 FL (78-98); MEAN PLATELET VOLUME 8.6 FL (7.4-10.4); MONOCYTES # (AUTO) 0.9 X10'3 (0-0.9); MONOCYTES % (AUTO) 13.7 % (2-12); NEUTROPHILS # (AUTO) 5.1 X10'3 (1.8-7.7); NEUTROPHILS % (AUTO) 74.8 % (42-75); PLATELET COUNT 205 X10'3 (140-440); RED BLOOD COUNT 3.07 X10'6 (4.20-5.60); RED CELL DISTRIBUTION WIDTH 15.6 % (11.5-14.5); WHITE BLOOD COUNT 6.8 X10'3 (4.5-11.0)
[2019-08-21 05:49] LABS: ALANINE AMINOTRANSFERASE 122 U/L (12-78); ALBUMIN 2.6 G/DL (3.4-5.0); ALBUMIN/GLOBULIN RATIO 0.8 (1.1-1.5); ALKALINE PHOSPHATASE 175 IU/L (46-116); ANION GAP 8 (8-16); ASPARTATE AMINO TRANSFERASE 110 U/L (10-37); BILIRUBIN,TOTAL 0.4 MG/DL (0.1-1.0); BLOOD UREA NITROGEN 23 MG/DL (7-18); BUN/CREATININE RATIO 6.4 (6.6-38.0); CALCIUM 8.4 MG/DL (8.5-10.1); CHLORIDE 102 MMOL/L (99-107); CREATININE 3.58 MG/DL (0.40-0.90); GLUCOSE 72 MG/DL (70-104); POTASSIUM 4.2 MMOL/L (3.5-5.1); SODIUM 141 MMOL/L (135-145); TOTAL CARBON DIOXIDE 31.5 MMOL/L (24-32); TOTAL PROTEIN 5.9 G/DL (6.4-8.2); eGFR 12 ML/MIN
[2019-08-21 06:00] VITALS: BP 161/52
--- NOTE | 2019-08-21 06:02 | NUR ---
Patient in room PCU 3026. I have received report from Liz HERRON and had the opportunity to ask questions and assume patient care.
--- NOTE | 2019-08-21 06:31 | NUR ---
Problems reprioritized. Patient report given, questions answered & plan of care reviewed with Cori HERRON.
[2019-08-21] MEDS: K and/or MAG REPLACEMENT MC SCH (07:49)
[2019-08-21] MEDS: clopidogrel 75mg tablet PO SCH (07:54)
[2019-08-21] MEDS: midodrine tablet 2.5 MG TABLET PO SCH (07:54)
[2019-08-21] MEDS: levoTHYROXINE 25mcg tablet PO SCH (07:54)
[2019-08-21] MEDS: carVEDilol 3.125mg tablet PO SCH (07:55)
[2019-08-21] MEDS: amiodarone 200mg tablet PO SCH (07:55)
[2019-08-21] MEDS: NUT.TX.IMP.RENAL FXN,LAC-REDUC (Nepro) 237 ML VANILLA PO SCH ×2 (08:00→13:00)
[2019-08-21] MEDS ORDERED: HYDR-4383 PO (10:21)
[2019-08-21 11:00] VITALS: BP 137/54
[2019-08-21 15:00] VITALS: BP 113/71
[2019-08-21] MEDS: morphine 2 MG/ML inj. syringe IV PRN (16:30)
--- NOTE | 2019-08-21 16:30 | NUR ---
Report called to Andra at [facility], all questions answered. Patient stable for discharge per MD orders.
--- NOTE | 2019-08-21 17:17 | NUR ---
Patient stable for discharge per MD orders. All discharge instructions reviewed with Andra at [facility] and all questions answered. PIV and front desk monitor discontinued. Belongings collected and sent with patient. Patient left in [employer] vehicle. Patient wheeled down to lobby by [employer] personnel.
== END 2019-08-21 17:15 | DRG 314 ==
LOC: ER 12:23 → ED HOLD 15:58 → PCU 3S 17:23
PROVIDERS: ADMIT Hospitalist; ATTEND Internal Medicine Critical Care Medicine
PROC: 5A1D70Z Performance of Urinary Filtration, Intermittent, Less than 6 Hours Per Day (ICD-10-PCS; principal; 2019-08-20)
DX: T82.590A Other mechanical complication of surgically created arteriovenous fistula, initial encounter (principal); G93.41 Metabolic encephalopathy; N18.6 End stage renal disease; I12.0 Hypertensive chronic kidney disease with stage 5 chronic kidney disease or end stage renal disease; I82.722 Chronic embolism and thrombosis of deep veins of left upper extremity; E05.90 Thyrotoxicosis, unspecified without thyrotoxic crisis or storm; I95.9 Hypotension, unspecified; F32.9 Major depressive disorder, single episode, unspecified; Y83.8 Other surgical procedures as the cause of abnormal reaction of the patient, or of later complication, without mention of misadventure at the time of the procedure; G89.29 Other chronic pain; M54.9 Dorsalgia, unspecified; R55 Syncope and collapse; E03.9 Hypothyroidism, unspecified; E78.00 Pure hypercholesterolemia, unspecified; Z82.49 Family history of ischemic heart disease and other diseases of the circulatory system; Z90.49 Acquired absence of other specified parts of digestive tract; Z99.2 Dependence on renal dialysis; Z99.3 Dependence on wheelchair; Z79.899 Other long term (current) drug therapy; Y92.89 Other specified places as the place of occurrence of the external cause
CPT/HCPCS: 36415; 71045; 76937; 80053; 83735; 84484; 85025; 87081; 93971; 99285; G0257; G0378; J1644; J2001; J2270; Q4081

== ENCOUNTER 2019-09-01 16:30 | Emergency (ER) | payer MEDICARE, BC ==
[~2019-09-01] VITALS: Ht 157.5 cm; Wt 59.1 kg
[~2019-09-01 16:30] MED LIST changes: -HEPA500017 SQ; +HYDR-4383 PO; +MIDO10TA PO; -MIDO5TAB4 PO; -MULT-342 PO; -SEVE800T8 PO
[2019-09-01 17:36] LABS: ABG BASE EXCESS 8.4 mmol/L (-2.0-3.0); ABG HCO3 32.5 mmol/L (22.0-26.0); ABG OXYGEN SATURATION 94.4 % (95-98); ABG PCO2 (T) 43.2 mmHg (35.0-45.0); ABG PH (T) 7.494 (7.350-7.450); ABG PO2 (T) 72.5 mmHg (83-108); ALLEN'S TEST Positive; FCOHb 0.5 % (0.5-1.5); FLOW 3 L/min; FMetHb 0.3 % (0.3-1.12); FO2Hb 93.6 % (94-100); RESPIRATORY RATE (OBSERVED) 18 b/min; TOTAL HEMOGLOBIN 9.7 G/dl (12.0-16.0)
[2019-09-01 18:03] LABS: BASOPHILS # (AUTO) 0.1 X10'3 (0-0.2); BASOPHILS % (AUTO) 0.5 % (0-1); EOSINOPHILS # (AUTO) 0.1 X10'3 (0-0.9); EOSINOPHILS % (AUTO) 0.7 % (0-6); HEMATOCRIT 26.9 % (35.0-45.0); HEMOGLOBIN 9.1 g/dl (12.0-16.0); LYMPHOCYTES # (AUTO) 0.4 X10'3 (1.1-4.8); LYMPHOCYTES % (AUTO) 3.6 % (21-51); MEAN CORPUSCULAR HEMOGLOBIN 33.4 PG (27.0-31.0); MEAN CORPUSCULAR HGB CONC 33.9 g/dL (33.0-36.5); MEAN CORPUSCULAR VOLUME 98.4 FL (78-98); MEAN PLATELET VOLUME 8.8 FL (7.4-10.4); MONOCYTES % (AUTO) 9.5 % (2-12); NEUTROPHILS # (AUTO) 9.1 X10'3 (1.8-7.7); NEUTROPHILS % (AUTO) 85.7 % (42-75); PLATELET COUNT 240 X10'3 (140-440); RED BLOOD COUNT 2.73 X10'6 (4.20-5.60); RED CELL DISTRIBUTION WIDTH 15.7 % (11.5-14.5); WHITE BLOOD COUNT 10.6 X10'3 (4.5-11.0)
[2019-09-01 18:07] LABS: ALANINE AMINOTRANSFERASE 73 U/L (12-78); ALBUMIN 2.3 G/DL (3.4-5.0); ALBUMIN/GLOBULIN RATIO 0.7 (1.1-1.5); ALKALINE PHOSPHATASE 132 IU/L (46-116); ANION GAP 6 (8-16); ASPARTATE AMINO TRANSFERASE 57 U/L (10-37); BILIRUBIN,TOTAL 0.4 MG/DL (0.1-1.0); BLOOD UREA NITROGEN 20 MG/DL (7-18); CALCIUM 8.4 MG/DL (8.5-10.1); CHLORIDE 102 MMOL/L (99-107); CREATININE 2.51 MG/DL (0.40-0.90); ETHANOL < 0.010 GM/DL (0.0-0.010); GLUCOSE 115 MG/DL (70-104); POTASSIUM 3.4 MMOL/L (3.5-5.1); SODIUM 141 MMOL/L (135-145); TOTAL CARBON DIOXIDE 33.2 MMOL/L (24-32); TOTAL PROTEIN 5.8 G/DL (6.4-8.2); eGFR 18 ML/MIN
--- NOTE | 2019-09-01 18:26 | NUR ---
PT TO CT VIA [facility]
[2019-09-01 18:45] LABS: PARTIAL THROMBOPLASTIN TIME 28 SECONDS (22-32)
[2019-09-01 19:26] LABS: CLARITY,URINE CLEAR (Clear); COLOR,URINE YELLOW (Yellow); GLUCOSE, URINE NEGATIVE (Neg); KETONES,URINE NEGATIVE (Neg); LEUKOCYTE ESTERASE ,URINE NEGATIVE (Neg); NITRITES, URINE NEGATIVE (Neg); OCCULT BLOOD,URINE NEGATIVE (Neg); PH,URINE 5.5 (4.8-8.0); PROTEIN,URINE TRACE mg/dl (Neg); UA COLLECTION TYPE STRAIGHT CATH; UROBILINOGEN,URINE 0.2 E.U/dL (0.2-1.0)
[2019-09-01 19:36] LABS: URINE AMPHETAMINE SCREEN NEGATIVE (Neg); URINE BARBITUATE SCREEN NEGATIVE (Neg); URINE BENZODIAZEPINES SCREEN NEGATIVE (Neg); URINE CANNABINOID SCREEN NEGATIVE (Neg); URINE COCAINE SCREEN NEGATIVE (Neg); URINE METHADONE SCREEN NEGATIVE (Neg); URINE OPIATE SCREEN POSITIVE (Neg); URINE PHENCYCLIDINE SCREEN NEGATIVE (Neg)
[2019-09-01 19:40] LABS: BACTERIA,URINE NONE SEEN /HPF (Neg); MUCUS STRANDS NONE SEEN /LPF (Neg); RBC,URINE NONE SEEN /HPF (0-2); SQUAMOUS EPITHELIAL CELL,UR NONE SEEN /LPF (FEW); WBC,URINE NONE SEEN /HPF (0-4)
[2019-09-01] MEDS ORDERED: VIT1TABL50 PO (19:52)
[2019-09-01] MEDS ORDERED: ASCO-238 PO (19:52)
[2019-09-01] MEDS ORDERED: AMIN30LI2 PO (19:52)
[2019-09-01] MEDS ORDERED: HYDR-4353 PO (19:52)
[2019-09-01] MEDS ORDERED: BISA10SU60 RC (19:52)
[2019-09-01] MEDS ORDERED: LEVO750T21 PO (20:12)
[2019-09-01 23:35] VITALS: BP 138/52
== END 2019-09-01 22:00 ==
LOC: ER 16:31
DX: J18.1 Lobar pneumonia, unspecified organism (principal); G93.41 Metabolic encephalopathy; R41.82 Altered mental status, unspecified; R11.10 Vomiting, unspecified; E78.00 Pure hypercholesterolemia, unspecified; I10 Essential (primary) hypertension; E05.90 Thyrotoxicosis, unspecified without thyrotoxic crisis or storm; G89.29 Other chronic pain; F32.9 Major depressive disorder, single episode, unspecified; R79.1 Abnormal coagulation profile; Z90.49 Acquired absence of other specified parts of digestive tract; Z98.890 Other specified postprocedural states; Z60.2 Problems related to living alone; Z99.2 Dependence on renal dialysis; Z79.899 Other long term (current) drug therapy
CPT/HCPCS: 36415; 36600; 70450; 71045; 80053; 80305; 80320; 81001; 82140; 82803; 83605; 83880; 84484; 85018; 85025; 85610; 85730; 87040; 93005; 99284

== ENCOUNTER 2019-09-04 13:07 | Emergency (ER) | payer MEDICARE, BC ==
[~2019-09-04] VITALS: Ht 167.6 cm; Wt 50.0 kg
[~2019-09-04 13:07] MED LIST changes: +AMIN30LI2 PO; +ASCO-238 PO; +BISA10SU60 RC; +HYDR-4353 PO; -HYDR-4383 PO; +LEVO750T21 PO; +VIT1TABL50 PO
[2019-09-04 14:43] LABS: BASOPHILS % (AUTO) 0.3 % (0-1); EOSINOPHILS # (AUTO) 0.2 X10'3 (0-0.9); EOSINOPHILS % (AUTO) 1.3 % (0-6); HEMATOCRIT 25.8 % (35.0-45.0); HEMOGLOBIN 8.7 g/dl (12.0-16.0); LYMPHOCYTES # (AUTO) 0.4 X10'3 (1.1-4.8); LYMPHOCYTES % (AUTO) 3.5 % (21-51); MEAN CORPUSCULAR HEMOGLOBIN 32.5 PG (27.0-31.0); MEAN CORPUSCULAR HGB CONC 33.6 g/dL (33.0-36.5); MEAN CORPUSCULAR VOLUME 96.6 FL (78-98); MEAN PLATELET VOLUME 8.5 FL (7.4-10.4); MONOCYTES # (AUTO) 0.9 X10'3 (0-0.9); MONOCYTES % (AUTO) 7.5 % (2-12); NEUTROPHILS # (AUTO) 10.5 X10'3 (1.8-7.7); NEUTROPHILS % (AUTO) 87.4 % (42-75); PLATELET COUNT 255 X10'3 (140-440); RED BLOOD COUNT 2.67 X10'6 (4.20-5.60); RED CELL DISTRIBUTION WIDTH 16.2 % (11.5-14.5)
[2019-09-04 14:59] LABS: ALANINE AMINOTRANSFERASE 60 U/L (12-78); ALBUMIN 2.1 G/DL (3.4-5.0); ALBUMIN/GLOBULIN RATIO 0.6 (1.1-1.5); ALKALINE PHOSPHATASE 122 IU/L (46-116); ANION GAP 7 (8-16); ASPARTATE AMINO TRANSFERASE 61 U/L (10-37); BILIRUBIN,TOTAL 0.5 MG/DL (0.1-1.0); BLOOD UREA NITROGEN 67 MG/DL (7-18); BUN/CREATININE RATIO 13.2 (6.6-38.0); CALCIUM 8.2 MG/DL (8.5-10.1); CHLORIDE 100 MMOL/L (99-107); CREATININE 5.09 MG/DL (0.40-0.90); GLUCOSE 86 MG/DL (70-104); POTASSIUM 3.8 MMOL/L (3.5-5.1); SODIUM 139 MMOL/L (135-145); TOTAL CARBON DIOXIDE 31.6 MMOL/L (24-32); TOTAL PROTEIN 5.5 G/DL (6.4-8.2); eGFR 8 ML/MIN
[2019-09-04] MEDS ORDERED: aspirin 81mg tab.chew PO ONE (15:05)
--- NOTE | 2019-09-04 15:34 | NUR ---
LUIS ENRIQUE WEI IN TO [facility]. PT WILL BE GETTING DIALYSIS TODAY.
--- NOTE | 2019-09-04 15:38 | NUR ---
PLACE TWO PILLOWS UNDER LEFT ARM ORDERED BY PA. LEFT ARM IS SWOLLEN AFTER SURGERY YESTERDAY.
[2019-09-04] MEDS ORDERED: normal saline 1000ml 250 ML IV PRN (15:57)
[2019-09-04] MEDS ORDERED: LIDOcaine 1% (10mg/ml) 2ml vial SQ ONE (16:00)
[2019-09-04] MEDS ORDERED: heparin 1,000 units/ml 10ml inj IV ONE (16:00)
[2019-09-04] MEDS ORDERED: epoetin 20,000 units/ml inj IV ONE (16:00)
[2019-09-04] MEDS ORDERED: midodrine 5mg tablet PO ONE (16:15)
--- NOTE | 2019-09-04 17:39 | NUR ---
relieving RN for lunch, pt is resting quietly on [address], dialysis nurse called and would like pt brought to overflow in 10 minutes
--- NOTE | 2019-09-04 17:53 | NUR ---
PT TO OVERFLOW FOR DIALYSIS
[2019-09-04 21:58] VITALS: BP 151/58
--- NOTE | 2019-09-04 22:21 | NUR ---
Gave report to Rima HERRON at [place]
== END 2019-09-04 23:20 | disposition home or self-care (01) ==
LOC: ER 13:08
DX: S40.021A Contusion of right upper arm, initial encounter (principal); I12.0 Hypertensive chronic kidney disease with stage 5 chronic kidney disease or end stage renal disease; N18.6 End stage renal disease; R06.03 Acute respiratory distress; R79.89 Other specified abnormal findings of blood chemistry; E78.00 Pure hypercholesterolemia, unspecified; E05.90 Thyrotoxicosis, unspecified without thyrotoxic crisis or storm; G89.29 Other chronic pain; F32.9 Major depressive disorder, single episode, unspecified; Z99.2 Dependence on renal dialysis; Z95.1 Presence of aortocoronary bypass graft; Z90.49 Acquired absence of other specified parts of digestive tract; Z60.2 Problems related to living alone; Z98.890 Other specified postprocedural states; Z79.899 Other long term (current) drug therapy; X58.XXXA Exposure to other specified factors, initial encounter; Y93.89 Activity, other specified; Y92.89 Other specified places as the place of occurrence of the external cause; Y99.8 Other external cause status
CPT/HCPCS: 36415; 71045; 80053; 83880; 84484; 85025; 93005; 96374; 99284; J1644; J2001; Q4081; G0257

== ENCOUNTER 2019-09-08 07:50 | Emergency (ER) | payer MEDICARE, BC ==
[2019-09-08 08:15] LABS: ISTAT CREATININE 3.2 mg/dL (0.6-1.1); ISTAT HGB 7.5 g/dl (12.0-16.0); ISTAT IONIZED CALCIUM 2.09 mmol/L (1.03-1.32); ISTAT K 4.2 mmol/L (3.5-5.1); POC BUN/CREATININE RATIO 11.3 (6.6-38.0)
--- NOTE | 2019-09-08 09:44 | NUR ---
CODE BLUE-SEE CODE BLUE FORM
[2019-09-08] MEDS ORDERED: epiNEPHrine 0.1mg/ml 10ml syringe ONE (17:00)
[2019-09-08] MEDS ORDERED: amiodarone 50MG/ML inj IV ONE (17:00)
[2019-09-08] MEDS ORDERED: sod chloride 0.9% 10ml flush syringe IV ONE (17:00)
[2019-09-08] MEDS ORDERED: calcium chloride 100 MG/1 ML inj IV ONE (17:00)
[2019-09-08] MEDS ORDERED: dextrose 50%-water 50ml dispensing syringe IV ONE (17:00)
== END 2019-09-08 10:08 | disposition expired ==
LOC: ER 07:52
DX: I46.9 Cardiac arrest, cause unspecified (principal); E78.00 Pure hypercholesterolemia, unspecified; I10 Essential (primary) hypertension; E03.9 Hypothyroidism, unspecified; G89.29 Other chronic pain; F32.9 Major depressive disorder, single episode, unspecified; Z90.49 Acquired absence of other specified parts of digestive tract; Z98.890 Other specified postprocedural states; Z60.2 Problems related to living alone; Z79.899 Other long term (current) drug therapy
CPT/HCPCS: 80047; 92950; 99285; J0171; J0282